=== PATIENT | male | born 1930 | race Caucasian/White ===

== ENCOUNTER 2017-02-05 09:50 | Inpatient (IN) | payer MEDICARE ==
[~2017-02-05] VITALS: Ht 172.7 cm; Wt 54.8 kg
[2017-02-05 10:06] VITALS: BP 163/85; PULSE 68; RESP 18; O2SAT 93
--- NOTE | 2017-02-05 10:20 | ED.REPORT ---
HPI-Hip/Pelvis Prob/Inj Date of Service February 05, 2017 ED Provider: Jhon Alonzo MD Patient is an 86 year old male who presents to the ED via EMS complaining of L hip pain s/p a glf this morning where he tripped and fell. Associated symptoms include trouble walking and painful ROM. He denies numbness, tingling, LOC, or any other symptoms. Nursing Notes Stated Complaint: LEFT HIP PAIN Chief Complaint: Extremity Trauma Nursing Notes Reviewed: Yes Allergies: Coded Allergies: atorvastatin (Verified Allergy, Severe, hepatitis, 02/05/17) iodine (Verified Allergy, Unknown, Hives, 02/05/17) Says he breaks out in hives the day after iodine. Given barium for CT scan 09/02/16. kld Scheduled Ezetimibe (Zetia) 10 Mg Tablet 10 MG PO Every other day Fluticasone/Salmeterol (Advair 250-50 Diskus) 60 Puff/Inh Disk 1 PUFF IH BID Scheduled PRN Albuterol HFA (Proair HFA) 8.5 Gm Hfa.aer.ad 2 PUFFS INHALATION Q4H PRN PRN For Shortness of Breath Diazepam (Valium) 5 Mg Tablet 2.5 MG PO TID PRN PRN For Anxiety Miscellaneous Medications Folic Acid (Folic Acid) 0.4 Mg Tablet 0.4 MG PO General Time Seen by Provider: 10:19 Chief Complaint Hip injury left Hx Obtained From: Patient, Spouse Arrived By: Ambulance Onset Occurred: 1 - 4 hours ago Immunizations: Tetanus not up to date Past Medical History Past Medical History Notes: PULST- DNR "unless I can be normal afterwards". Past Medical History Previous MS osteroporosis Reports: COPD, Coronary artery disease Past Surgical History fused vertebrae hernia repair Eye surgery Social History Other Social History: Good social support, Review of Systems Review of Systems Note: -tingling Musculoskeletal: Reports: Joint pain (L hip ) Neurologic: Reports: Problem walking, Denies: Change LOC, Numbness Complete sys rev & neg: except as marked. Physical Exam Initial Vital Signs Vital Signs (First) Date Time Temp Pulse Resp B/P Pulse Ox O2 Delivery O2 Flow Rate FiO2 02/05/17 10:06 36.5 68 18 163/85 93 Room Air 02/05/17 13:10 2 Initial VS: Reviewed General/Constitutional: Well-developed, Well-nourished Head / Eyes: Atraumatic, Normocephalic Neck: Full range of motion Abdomen / GI: Soft, Non-tender Neurologic: Alert, Oriented, Nonfocal Psychiatric: Mood/affect normal, Behavior normal, Normal thought content Lower Extremity / Pelvis / MS: No deformity LLE painful to ROM Respiratory / Chest: Breath sounds NL, Breath sounds = bilat, No respiratory distress Cardiovascular: Heart rate NL, Regular rhythm, Heart sounds NL, No gallop, No murmurs, No rubs Back: Atraumatic, Inspection NL, Non-tender Skin: Color NL, Warm, Dry Skin tear at L elbow Interpretation & Diagnostics Lab Results Interpretation Result Diagram: 02/05/17 1100 02/05/17 1100 Test 02/05/17 11:00 White Blood Count 9.5th/mm3 (3.8-10.1) Red Blood Count 4.52mil/mm3 (4.40-5.80) Hemoglobin 14.4g/dL (13.8-17.2) Hematocrit 42.5% (41.0-50.0) Mean Corpuscular Volume 94.0fL (81-100) Mean Corpuscular Hemoglobin 31.9pg (27.0-35.0) Mean Corpuscular Hemoglobin Concent 33.9% (32.0-37.0) Red Cell Distribution Width 14.4% (12.3-15.4) Platelet Count 171bil/L (150-400) Neutrophils (%) (Auto) 77.4% (40-74) Lymphocytes (%) (Auto) 14.8% (14-46) Monocytes (%) (Auto) 6.8% (4-12) Eosinophils (%) (Auto) 0.4% (0-5) Basophils (%) (Auto) 0.5% (0-3) Sodium Level 132mEq/L (134-144) Potassium Level 4.3mEq/L (3.5-5.2) Chloride Level 96mEq/L (97-108) Carbon Dioxide Level 20mmol/L (18-29) Blood Urea Nitrogen 16mg/dL (8-27) Creatinine 0.95mg/dL (0.76-1.27) Estimat Glomerular Filtration Rate 80mL/min (>59) Glucose Level 119mg/dL (60-99) Calcium Level 9.2mg/dL (8.5-10.1) Magnesium Level 1.9mg/dL (1.6-2.6) Total Bilirubin 0.8mg/dL (0.0-1.2) Aspartate Amino Transf (AST/SGOT) 25U/L (0-50) Alanine Aminotransferase (ALT/SGPT) 18U/L (0-44) Alkaline Phosphatase 94U/L (25-160) Total Protein 7.1g/dL (6.4-8.4) Albumin 3.9g/dL (3.4-5.0) ECG Interpretation ECG Interpretation: Sinus tachycardia rate [address] segment changes Ventricular premature complex Time: 12:15 Interpreted by: ED physician X-Ray Chest Interpretation Chest Xray Interpretation: IMPRESSION: Unchanged chronic interstitial changes. Dictated by: Calli Oconnor M.D. on 02/05/2017 at 12:51 Approved by: Calli Oconnor M.D. on 02/05/2017 at 12:51 View: Portable, 1 view Interpretation / Wet Read by: Interpret - Radiologist X-Ray Interpretation Xray Interpretation: IMPRESSION: Nondisplaced superior proximal femur fracture at the base of the lesser trochanter. Dictated by: Calli Oconnor M.D. on 02/05/2017 at 11:42 Approved by: Calli Oconnor M.D. on 02/05/2017 at 11:44 X-Ray Ordered: Pelvis, Hip left Interpretation / Wet Read by: Interpret - Radiologist Xray Interpretation: IMPRESSION: Degenerative changes. No visualized acute fracture or dislocation. However, if clinical concern and/or pain persist, short interval imaging followup in 7-10 days is recommended, as occult injury cannot be definitively excluded. Dictated by: Calli Oconnor M.D. on 02/05/2017 at 12:51 Approved by: Calli Oconnor M.D. on 02/05/2017 at 12:52 X-Ray Ordered: Knee left Interpretation / Wet Read by: Interpret - Radiologist Xray Interpretation: IMPRESSION: Nondisplaced proximal femoral shaft fracture as above. Dictated by: Calli Oconnor M.D. on 02/05/2017 at 12:52 Approved by: Calli Oconnor M.D. on 02/05/2017 at 12:53 X-Ray Ordered: Femur left Interpretation / Wet Read by: Interpret - Radiologist Re-Eval/Medical Decision Med Decision/Clinical Course 86 year-old with proximal femur fx. Will admit to hospitalist with ortho, preop studies elizabeth. Re-Evaluation/Progress : Time of Eval: 11:44 Re-Evaluation/Progress Note: Rechecked pt. Discussed imaging results and plan for admission. Patient understands and agrees with plan. All questions addressed at this time. Consultation #1: Referral / Consult Name: David Rodriguez MD Consulted With: Orthopedic Call Returned at: 11:41 Structural Layout Worker: Agrees with eval, Agrees with plan Note: Discussed pt case and imaging. Admit patient to hospitalist and surgery tomorrow. Consultation #2: Referral / Consult Name: Fredis Muir MD Consulted With: Hospitalist Call Returned at: 13:14 Structural Layout Worker: Will see patient, Agrees with eval, Agrees with plan, Accepts admit Note: Discussed pt case. Accepts admit Counseled Regarding: Diagnosis, Need for follow-up, Need for admission Discharge & Departure Impression: Primary Impression: Fracture, proximal femur Encounter type: initial encounter Fracture type: closed Laterality: left Qualified Code: S72.002A - Fracture of unspecified part of neck of left femur, initial encounter for closed fracture Disposition: ADMITTED TO HOSPITAL Discharge Condition All VS Reviewed: Yes Condition: Stable Referrals: Adrien Dowd DO (PCP) Scribe Attestation Portions of this note were transcribed by Merrick Caicedo. I, Dr. Alonzo personally performed the history, physical exam and medical decision-making; I reviewed and confirmed the accuracy of the information in the transcribed note. Signed by: Merrick Caicedo 02/05/2017, 1315 copies to: Adrien Dowd Donald L MD February 05, 2017 10:20 MERRICK CAICEDO February 05, 2017 10:26
[2017-02-05] MEDS: Ondansetron 2 mg/mL 2 mL Inj IV PRN (10:43)
[2017-02-05] MEDS: HYDROmorphone 1 mg/mL Inj IVPUSH PRN ×2 (10:43→11:33)
--- NOTE | 2017-02-05 11:46 | DRSVH ---
PROCEDURE: X-RAY PELVIS W/LAT HIP (LT) ([id number]) INDICATIONS: l hip pain post fall TECHNIQUE: AP pelvis with lateral view(s) of the left hip(s). COMPARISON: None. FINDINGS: Bones: There is a nondisplaced fracture of the proximal femur. It crosses the margin of the inferio r aspect of the lesser trochanter. Soft tissues: The visualized bowel gas pattern is normal. No suspicious soft tissue calcifications. IMPRESSION: Nondisplaced superior proximal femur fracture at the base of the lesser trochanter. Dictated by: Calli Oconnor M.D. on 02/05/2017 at 11:42 Approved by: Calli Oconnor M.D. on 02/05/2017 at 11:44
[2017-02-05] MEDS ORDERED: HYDROmorphone 1 mg/mL Inj IVPUSH ONE (11:55)
[2017-02-05] MEDS ORDERED: DIAZ5TAB PO (12:07)
[2017-02-05] MEDS ORDERED: CALC-243 PO (12:07)
[2017-02-05] MEDS ORDERED: EZET10TA PO (12:07)
[2017-02-05] MEDS ORDERED: ADV250INH IH (12:07)
[2017-02-05] MEDS ORDERED: MV-M1TAB38 PO (12:07)
[2017-02-05] MEDS ORDERED: ALBU8.5H2 INHALATION (12:07)
[2017-02-05 12:16] LABS: BASOPHILS % (AUTO) 0.5 % (0-3); EOSINOPHILS % (AUTO) 0.4 % (0-5); MONOCYTES % (AUTO) 6.8 % (4-12); Mean Corpuscular Hemoglobin 31.9 pg (27.0-35.0); NEUTROPHILS % (AUTO) 77.4 % (40-74); Platelet Count 171 bil/L (150-400)
[2017-02-05 12:39] LABS: Magnesium 1.9 mg/dL (1.6-2.6)
--- NOTE | 2017-02-05 12:53 | DRSVH ---
PROCEDURE: X-RAY CHEST ONE VIEW, PORTABLE ([id number]) INDICATIONS: preop TECHNIQUE: One view of the chest was acquired. COMPARISON: None. FINDINGS: Surgical changes and devices: Thoracic vertebral/kyphoplasty changes are present. Lungs and pleura: Chronic interstitial changes most prominent in the apices are unchanged. Mediastinum: Mediastinal contours appear normal. Heart size is normal. Bones and chest wall: No suspicious bony lesions. Overlying soft tissues appear unremarkable. IMPRESSION: Unchanged chronic interstitial changes. Dictated by: Calli Oconnor M.D. on 02/05/2017 at 12:51 Approved by: Calli Oconnor M.D. on 02/05/2017 at 12:51
--- NOTE | 2017-02-05 12:54 | DRSVH ---
PROCEDURE: X-RAY LEFT KNEE, ONE OR TWO VIEWS ([id number]) INDICATIONS: preop TECHNIQUE: 2 views of the knee were acquired. COMPARISON: None. FINDINGS: Bones: No fractures or dislocations. No suspicious bony lesions. Prominent medial and patellofemor al osteoarthritic degenerative narrowing. Soft tissues: No joint effusion. No suspicious soft tissue calcifications. IMPRESSION: Degenerative changes. No visualized acute fracture or dislocation. However, if clinical c oncern and/or pain persist, short interval imaging followup in 7-10 days is recommended, as occult in jury cannot be definitively excluded. Dictated by: Calli Oconnor M.D. on 02/05/2017 at 12:51 Approved by: Calli Oconnor M.D. on 02/05/2017 at 12:52
--- NOTE | 2017-02-05 12:55 | DRSVH ---
PROCEDURE: X-RAY LEFT FEMUR, TWO VIEWS ([id number]) INDICATIONS: preop TECHNIQUE: Pre-views of the femur were acquired. COMPARISON: None. FINDINGS: Bones: As previously identified, there is a nondisplaced proximal femoral shaft fracture, affecting t he inferior most aspect of the lesser trochanter. Degenerative changes are present at the knee most n otable in the medial and patellofemoral compartments. Soft tissues: No suspicious soft tissue calcifications or masses. IMPRESSION: Nondisplaced proximal femoral shaft fracture as above. Dictated by: Calli Oconnor M.D. on 02/05/2017 at 12:52 Approved by: Calli Oconnor M.D. on 02/05/2017 at 12:53
[2017-02-05 13:10] VITALS: BP 137/73; RESP 24; O2SAT 91
[2017-02-05] MEDS ORDERED: Polyethylene Glycol (PEG) 17 Gm Powder PO PRN (13:15)
--- NOTE | 2017-02-05 14:01 | PCM.HPMED ---
Subjective Date of Service February 05, 2017 Primary Provider: Admitting Physician: Fredis Muir MD Primary Care Physician: Adrien Dowd DO Attending Physician: Fredis Muir MD Chief Complaint: s/p fall History of Present Illness: 86 year old male with remote history [place], fomer smoker, COPD, HLD, severe back osteoarthritis a/p multiple kyphoplasty presented with mechanical fall this morning. Patient and dated that, there were outside of the house, patient tripped over extension cord, landed on the ground on the left side on the wooden deck, hurt his lt hip, lt elbow and mildly hit head. Patient denied chest pain, difficulty breathing, palpitation, blurry vision, nausea prior to fall. Patient did lose consciousness as per , not confused. called her son to bring to hospital. Of note, pt usually ambulates without any assistance at home and outside. can walk many blocks without chest pain,SOB. Patient denied any fever, chills, recent sickness, nausea, vomiting, diarrhea, urinary complaints. recent travel. pt used to use home oxygen until 2yrs ago before he moved to [place], for past 2yrs, Spo2 remained 90-95% on RA, didn't require O2, denied hospitalization with COPD. ED VS [id number], 68, 18, 93% on RA, afebrile. femur/knee/hip xray showed Nondisplaced proximal femoral shaft fracture. CXR/labs unremarkable. EKG-sinus [id number] Review of Systems: Pertinent positives as noted in history of present illness. All other systems were reviewed and are negative Allergies Coded Allergies: iodine (Verified Allergy, Unknown, Hives, 02/05/17) Says he breaks out in hives the day after iodine. Given barium for CT scan 09/02/16. kld Home Medications Advair bid albuterol prn, uses 1-2 per week valium prn for anxiety Zetia 1tab q2d PMH remote history [place] at 66yo, "at the bottom of the heart, didn't require intervention" COPD, as described above HLD, on Zetia, cannot tolerate statin, developed hepatitis, tried after [place] severe back osteoarthritis, fracture a/p multiple kyphoplasty mild MR, found 2000, TTE 2yrs ago stable Surgical History Bilateral hernia repair External hemorrhoids Kyphoplasty 6 times Family History father of old age mother of gangrenous pancreas Social History Hx Alcohol Use: Yes (very seldom) Hx Substance Use: No Hx Tobacco Use: Yes (40yrs of 2-3ppd until 1988) Additional Information lives with Exam Vital Signs Vital Sign - Last Date Time Temp Pulse Resp B/P Pulse Ox O2 Delivery O2 Flow Rate FiO2 02/05/17 10:06 36.5 68 18 163/85 93 Room Air Exam NAD, comfortably laying down on the bed no JVD, MMM, no LAD RRR, nl s1, s2 no mrg CTAB, no w,c S,ND,NT,normoactive BS+ warm, no edema, pulses 2/2 Lab and Diagnostics Result Diagram: 02/05/17 1100 02/05/17 1100 X-Rays, CTs and MRIs PROCEDURE: X-RAY CHEST ONE VIEW, PORTABLE ([id number]) INDICATIONS: preop TECHNIQUE: One view of the chest was acquired. COMPARISON: None. FINDINGS: Surgical changes and devices: Thoracic vertebral/kyphoplasty changes are present. Lungs and pleura: Chronic interstitial changes most prominent in the apices are unchanged. Mediastinum: Mediastinal contours appear normal. Heart size is normal. Bones and chest wall: No suspicious bony lesions. Overlying soft tissues appear unremarkable. IMPRESSION: Unchanged chronic interstitial changes. Dictated by: Calli Oconnor M.D. on 02/05/2017 at 12:51 Approved by: Calli Oconnor M.D. on 02/05/2017 at 12:51 PROCEDURE: X-RAY LEFT FEMUR, TWO VIEWS ([id number]) INDICATIONS: preop TECHNIQUE: Pre-views of the femur were acquired. COMPARISON: None. FINDINGS: Bones: As previously identified, there is a nondisplaced proximal femoral shaft fracture, affecting the inferior most aspect of the lesser trochanter. Degenerative changes are present at the knee most notable in the medial and patellofemoral compartments. Soft tissues: No suspicious soft tissue calcifications or masses. IMPRESSION: Nondisplaced proximal femoral shaft fracture as above. Dictated by: Calli Oconnor M.D. on 02/05/2017 at 12:52 Approved by: Calli Oconnor M.D. on 02/05/2017 at 12:53 12-lead ECG sinus tach 106 Assessment & Plan 86 year old male with remote history [place], fomer smoker, COPD, HLD, severe back osteoarthritis a/p multiple kyphoplasty presented with mechanical fall this morning, found to have Acute, active s/p ground level mechanical fall, resultant left proximal femur shaft fx. no s/ s of prodrome prior to fall. -pre-op assessment: COPD seems stable with current tx, CXR was also unremarkable. RCRI1: 0.9% javid-op risks of major cardiac event. no active cardiac condition that required preop eval and tx. -appreciate , plan for surgery tomorrow -control pain with morphine, per , pt was confused with other opoiod in the past except morphine -post op dvt ppx, pain management per orthopedic service mild tachycardia, hypertension, POA, likely due to stress response, monitor w/o meds for now Chronic, stable remote history [place] at 66yo, "at the bottom of the heart, didn't require intervention", stable, monitor for now, COPD, continue qvar bid, albuterol prn, will target [id number]%, o2 supplement as needed HLD, on Zetia, cannot tolerate statin, developed hepatitis, tried after [place] in the past, continue Zetia after surgery severe back osteoarthritis, fracture a/p multiple kyphoplasty, stable, mild MR, found 2000, TTE 2yrs ago stable, not active, pt seemed euvolemic. anxiety d/o, ativan prn dispo:Patient will be admitted with inpatient status with expectation of inpatient therapy for more than 2 midnights diet:heart healthy now, NPO after MN dvt ppx:SCD Full code Time spent 65 minutes Fredis Muir MD February 05, 2017 13:17
[2017-02-05 14:04] VITALS: BP 145/95; PULSE 105; RESP 18; O2SAT 90
[2017-02-05] MEDS ORDERED: Albuterol 2.5 mg/3 mL Inhalation Solution NEB PRN (14:05)
[2017-02-05] MEDS ORDERED: FOLI0.4T2 PO (14:23)
[2017-02-05 14:40] VITALS: PULSE 109
[2017-02-05] MEDS: HYDROcodone-APAP 5-325 mg Tablet PO PRN ×2 (15:23→19:44)
[2017-02-05 17:22] VITALS: BP 157/79; PULSE 105; RESP 20; O2SAT 92
[2017-02-05] MEDS: Sodium Chloride LOK Flush 10 mL Syringe IVFLUSH SCH ×2 (18:06→19:50)
[2017-02-05 18:09] LABS: APPEARANCE,URINE CLEAR (CLEAR,HAZY); COLOR,URINE DARK YELLOW (YELLOW); OCCULT BLOOD,URINE NEGATIVE (NEGATIVE); UROBILINOGEN,URINE NORMAL (NORMAL)
[2017-02-05] MEDS: Calcium Carbonate (Oyster Shell) 500 mg Tablet PO SCH ×2 (18:36→18:40)
[2017-02-05] MEDS: Fluticasone-Salmererol 250-50 Inhaler INHALATION SCH (19:48)
--- NOTE | 2017-02-05 21:01 | PCM.CONORT ---
Subjective Date of Surgery: February 06, 2017 Surgeon Admitting Provider: Attending Provider: Primary Care Physician:Adrien Dowd DO Other Provider: Reason for Consultation: left hip pain Allergy Allergies: Coded Allergies: atorvastatin (Verified Allergy, Severe, hepatitis, 02/05/17) iodine (Verified Allergy, Unknown, Hives, 02/05/17) Says he breaks out in hives the day after iodine. Given barium for CT scan 09/02/16. kld Medications Albuterol HFA (Proair HFA) 8.5 Gm Hfa.aer.ad 2 PUFFS INHALATION Q4H PRN PRN For Shortness of Breath (Reported) Last Taken: Unknown Dose on 02/03/17 1200 Diazepam (Valium) 5 Mg Tablet 2.5 MG PO TID PRN PRN For Anxiety (Reported) Last Taken: Unknown Dose on 02/02/17 0800 Ezetimibe (Zetia) 10 Mg Tablet 10 MG PO Every other day (Reported) Last Taken: Unknown Dose on 02/03/17 0800 Fluticasone/Salmeterol (Advair 250- 50 Diskus) 60 Puff/Inh Disk 1 PUFF IH BID (Reported) Last Taken: Unknown Dose on 02/05/17 0800 Folic Acid (Folic Acid) 0.4 Mg Tablet 0.4 MG PO (Reported) Last Taken: Unknown Dose on 02/04/17 0800 Discontinued Medications Calcium Carbonate/Vitamin D3 (Calcium 600 + Vit D Tablet) 1 Each Tablet 2 EACH PO DAILY (Reported) Last Taken: Unknown Dose on 06/08/16 Mv-Mn/FA/Vit K/Lycop/Lut/Zeaxa ( Ocuvite Eye + Multi Tablet) 200 Mcg-15 Mcg-150 Mcg-5 Mg-1 Mg Tablet 1 EACH PO DAILY (Reported) Last Taken: Unknown Dose on Unknown Date & Time History History of ENT Problems?: No HEENT History: Denies:: Abnormal Airway Cataracts Difficult Intubation Dysphagia Glaucoma Hearing Problem Sinus Problem TMJ Denture Type: None Teeth Condition: Within Normal Limits Hx of Heart Problems?: No Cardiovascular History: Denies:: AICD Abdominal Aortic Aneurism Atrial Fibrillation Cardiac Surgery Chest Pain Congestive Heart Failure Coronary Artery Disease Edema Heart Murmur Hypertension Irregular Heartbeat Pacemaker Peripheral Vascular Rheumatic Fever Thrombophlebitis Valvular Heart Disease Hx of Respiratory Problem?: Yes Respiratory History: Denies:: Asthma COPD Chest Surgery Cough Dyspnea Emphysema Hemoptysis Oxygen Administration Pneumonia Pulmonary Embolism Tuberculosis Use of C-PAP Machine Use of Inhalers / NEBS Hx Neurologic Problems?: No Neurological History: Denies:: Alzheimer's Disease CVA Dementia Dizziness Headaches Multiple Sclerosis Parkinson's Disease Peripheral Neuropathy Seizures TIA Hx of GI Problems?: No Gastrointestinal History: Denies:: Cirrhosis Diverticulitis Gall Bladder Disease Gastroesphageal Reflux Gastrointestinal Bleeding Heartburn Hepatitis Hiatal Hernia Liver Disease Rectal Bleeding Hx of Problems?: No Genitourinary History: Denies:: HX of Hemodialysis Kidney Stones Urinary Tract Infection Male Hx: Denies:: Prostate Problems Scrotal Mass Testicular Surgery Skin History: Denies:: History Skin Disorders? Pressure Ulcers Hx Musculoskeletal Problems?: No Other History/Comment Thomas Mendez is an 86 year old male with hx of [place], former smoker, COPD, HLD , HLD, previous vertebral insufficiency fractures s/p multiple kyphoplasties, osteoporosis who presents to the ER and orthopaedic consulted for left hip pain. Mr. Mendez reports tripping over an extension cord and landed on his left side with left hip pain. Pt reports pain with attempted ambulation. He denies any previous hip pain. Pt reports no LOC and is being admitted to medicine for medical optimization and care. He denies any fever, chills, chest pain, SOB. He denies any numbness, tingling, to his distal extremity. He denies any other issues or complaints today. He reports no use of ambulatory aids prior to fall. He is presenting with his today who witnessed the fall. Hx Surgeries?: No Other History/Comment per history Hx Diabetes: No Hx Alcohol Use: Yes (very seldom)Hx Substance Use: NoHave You Smoked inLast 12 mo: No Objective Exam Vital Signs & I/O Vital Sign- Last 8 Hours Date Time Temp Pulse Resp B/P Pulse Ox O2 Delivery O2 Flow Rate FiO2 02/05/17 10:06 36.5 68 18 163/85 93 Room Air Lab & Micro Results Laboratory Tests Test 02/05/17 11:00 Review of Systems: Constitutional: Negative, except as otherwise mentioned in the history above. Ophthalmologic: Negative, except as otherwise mentioned in the history above. Cardiovascular: Negative, except as otherwise mentioned in the history above. Respiratory: Negative, except as otherwise mentioned in the history above. Gastrointestinal: Negative, except as otherwise mentioned in the history above. Genitourinary: Negative, except as otherwise mentioned in the history above. Musculoskeletal: Negative, except as otherwise mentioned in the history above. Neurological: Negative, except as otherwise mentioned in the history above. Psychiatric: Negative, except as otherwise mentioned in the history above. Hematologic/Lymphatic: Negative, except as otherwise mentioned in the history above. Allergic/Immunologic: Negative, except as otherwise mentioned in the history above. H&P Surgical Exam Exam Musculoskeletal: CONST: WD,WN, NAD, A+OX3 OCULAR: EOMI, no conjunctivitis/icterus ENT: no deformities, scars or lesions CARDIAC: Pulse is regular. No cyanosis,clubbing,edema RESP: regular,unlabored MSK: normal light touch SPN/DPN/TN distributions. 5/5 DF/PF/Inv/Ev, 2+ DP Left HIP - scars.- swelling, - erythema - atrophy or asymmetry. TTP proximal femur, GT- mild, alignment- spine neutral, shoulder-crest equal, - pelvic tilt, ASIS-medial mal- symmetric ROM logroll-painful Strength deferred ROM exam 2/2 pain - calf tenderness thigh circ-equal, Signs deferred Additional Information 2 view xray of the left hip demonstrates nondisplaced subtrochanteric femur fracture H&P Preop Plan Impression left hip subtrochanteric femur fracture Problems: Risks & Benefits * We have reviewed the risks and benefits as well as the alternatives to surgery. All questions were answered to the patient's satisfaction and a counseling note to that effect. The patient has provided informed consent. * I have counseled the patient regarding the deleterious effects that smoking during the perioperative period can have upon wound healing, infection rates, and the overall rate of complications. Plan NWB LLE recommend dedicated femur and knee xrays NPO after midnight or OR in AM- CRIMN DVT prophylaxis with SCD/TEDs chemical DVT prophylaxis after surgery appreciate medical optimization for surgery in AM continue medical management per primary pain control please call with questions David Rodriguez MD February 05, 2017 12:16
[2017-02-05 21:28] VITALS: BP 135/77; PULSE 95; RESP 20; O2SAT 93
[2017-02-06] VITALS (13 sets, daily range): BP systolic 102–134; BP diastolic 63–80; PULSE 83–110; RESP 16–21; O2SAT 89–98
[2017-02-06] MEDS: HYDROcodone-APAP 5-325 mg Tablet PO PRN ×2 (02:22→18:52)
[2017-02-06] MEDS ORDERED: HYDROmorphone 1 mg/mL Inj IVPUSH PRN (05:15)
[2017-02-06 05:44] LABS: BASOPHILS % (AUTO) 0.3 % (0-3); EOSINOPHILS % (AUTO) 0.4 % (0-5); MONOCYTES % (AUTO) 13.2 % (4-12); Mean Corpuscular Hemoglobin 32.1 pg (27.0-35.0); Mean Corpuscular Volume 93.9 fL (81-100); NEUTROPHILS % (AUTO) 74.5 % (40-74); Platelet Count 145 bil/L (150-400)
[2017-02-06] MEDS ORDERED: Propofol 10,000 mCg/mL 20 mL Inj ONE (07:17)
[2017-02-06] MEDS: Ondansetron 2 mg/mL 2 mL Inj IV PRN (07:47)
[2017-02-06] MEDS ORDERED: fentaNYL-PF 50 mCg/mL 2 mL Inj IVPUSH PRN (08:00)
[2017-02-06] MEDS ORDERED: CALCIUM CARBONATE PO SCH (08:30)
[2017-02-06] MEDS ORDERED: VITAMIN D3 PO SCH (08:30)
[2017-02-06] MEDS ORDERED: [UNRECOGNIZED DRUG - OTHER] PO SCH (08:30)
[2017-02-06] MEDS: Vitamins C,E, Omega-3, Mineral Tablet PO SCH (09:02)
[2017-02-06] MEDS: Fluticasone-Salmererol 250-50 Inhaler INHALATION SCH ×2 (09:03→21:02)
[2017-02-06] MEDS: Sodium Chloride LOK Flush 10 mL Syringe IVFLUSH SCH ×2 (09:03→17:22)
--- NOTE | 2017-02-06 09:32 | PCM.PNMED ---
Subjective Date of Service February 06, 2017 Subjective pt still in pain, agitated intermittently, looked distressed due to pain denied SOB, chest pain, had nausea with morphine, but did well with oxycodone plan for surgery today per Exam Vital Signs Vital Sign - Last Date Time Temp Pulse Resp B/P Pulse Ox O2 Delivery O2 Flow Rate FiO2 02/06/17 09:13 36.8 84 18 130/80 92 Nasal Cannula 2.00 Intake and Output 02/05/17 02/05/17 02/06/17 Cumulative From/Thru 15:00 23:00 07:00 02/05/17 10:06 - 02/06/17 06:06 Intake Total 400 ml 250 ml 650 ml Output Total 300 ml 490 ml 790 ml Balance 100 ml -240 ml -140 ml Intake Oral 400 ml 250 ml 650 ml Output Urine Total 300 ml 490 ml 790 ml # Bowel Movements 0 0 Exam NAD, comfortably laying down on the bed no JVD, MMM, no LAD RRR, nl s1, s2 no mrg CTAB, no w,c S,ND,NT,normoactive BS+ warm, no edema, pulses 2/2 left hip tenderness IVs and Medications Medications Reviewed: Medications were reviewed in detail Lab and Diagnostics Result Diagram: 02/06/17 0525 02/05/17 1100 X-Rays, CTs and MRIs PROCEDURE: X-RAY CHEST ONE VIEW, PORTABLE ([id number]) INDICATIONS: preop TECHNIQUE: One view of the chest was acquired. COMPARISON: None. FINDINGS: Surgical changes and devices: Thoracic vertebral/kyphoplasty changes are present. Lungs and pleura: Chronic interstitial changes most prominent in the apices are unchanged. Mediastinum: Mediastinal contours appear normal. Heart size is normal. Bones and chest wall: No suspicious bony lesions. Overlying soft tissues appear unremarkable. IMPRESSION: Unchanged chronic interstitial changes. Dictated by: Calli Oconnor M.D. on 02/05/2017 at 12:51 Approved by: Calli Oconnor M.D. on 02/05/2017 at 12:51 PROCEDURE: X-RAY LEFT FEMUR, TWO VIEWS ([id number]) INDICATIONS: preop TECHNIQUE: Pre-views of the femur were acquired. COMPARISON: None. FINDINGS: Bones: As previously identified, there is a nondisplaced proximal femoral shaft fracture, affecting the inferior most aspect of the lesser trochanter. Degenerative changes are present at the knee most notable in the medial and patellofemoral compartments. Soft tissues: No suspicious soft tissue calcifications or masses. IMPRESSION: Nondisplaced proximal femoral shaft fracture as above. Dictated by: Calli Oconnor M.D. on 02/05/2017 at 12:52 Approved by: Calli Oconnor M.D. on 02/05/2017 at 12:53 12-lead ECG sinus tach 106 Assessment & Plan 86 year old male with remote history LA, fomer smoker, COPD, HLD, severe back osteoarthritis a/p multiple kyphoplasty presented with mechanical fall this morning, found to have Acute, active s/p ground level mechanical fall, resultant left proximal femur shaft fx. no s/ s of prodrome prior to fall. -pre-op assessment: COPD seems stable with current tx, CXR was also unremarkable. RCRI1: 0.9% javid-op risks of major cardiac event. no active cardiac condition that required preop eval and tx. -appreciate , plan for surgery today -control pain with morphine or oxycodone, will try fentanyl prn -post op dvt ppx, pain management per orthopedic service Chronic, stable, resolved mild tachycardia, hypertension, POA, likely due to stress response, resolved remote history LA at 66yo, "at the bottom of the heart, didn't require intervention", stable, monitor for now, COPD, continue qvar bid, albuterol prn, will target [id number]%, o2 supplement as needed HLD, on Zetia, cannot tolerate statin, developed hepatitis, tried after LA in the past, continue Zetia after surgery severe back osteoarthritis, fracture a/p multiple kyphoplasty, stable, mild MR, found 2000, TTE 2yrs ago stable, not active, pt seemed euvolemic. anxiety d/o, ativan prn dispo:likely 3days post op diet:NPO resume diet dvt ppx:SCD Full code Time spent 35min Fredis Muir MD February 06, 2017 09:32
[2017-02-06] MEDS ORDERED: Sodium Biphos-Phos 133 mL Enema RECTAL PRN (12:25)
[2017-02-06] MEDS ORDERED: Magnesium Hydroxide 10 mL Oral Concentration PO PRN (12:25)
[2017-02-06] MEDS ORDERED: HYDROcodone-APAP 5-325 mg Tablet PO PRN (12:25)
[2017-02-06] MEDS ORDERED: hydrOXYzine Pamoate 25 mg Capsule PO PRN (12:25)
[2017-02-06] MEDS ORDERED: Ketorolac 15 mg/mL Inj IVPUSH PRN (12:25)
[2017-02-06] MEDS ORDERED: Ondansetron 2 mg/mL 2 mL Inj IVPUSH PRN (12:25)
[2017-02-06] MEDS ORDERED: diphenhydrAMINE 25 mg Capsule PO PRN (12:25)
[2017-02-06] MEDS ORDERED: Polyethylene Glycol (PEG) 17 Gm Powder PO PRN (12:25)
[2017-02-06] MEDS ORDERED: HYDROcodone-APAP 7.5-325 mg Tablet PO PRN (12:25)
--- NOTE | 2017-02-06 14:14 | PCM.ORTHOP ---
Orthopedic Operative Report Date of Service: February 06, 2017 Pre Operative Diagnosis Left hip subtrochanteric femur fracture Post Operative Diagnosis Same Procedure Left hip closed reduction intramedullary nail fixation Surgeon Surgeon: David Rodriguez Assistants: Mich Hernandez Indication for Procedure Left hip/subtrochanteric femur fracture Findings Per dictation Details of Procedure Implant: Synthes Nail 12mm X 130 deg, 400 mm, TFNA screw 100mm, 48mm screw distal interlock Indications: This is Thomas Mendez who is status-post a left hip subtrochanteric femur fracture with clinical osteoporosis. We discussed surgical and nonsurgical options and discussed need to protect entire femur in the setting of osteoporosis refractory to treatment with several medications. The risks versus benefits of open reduction and internal fixation were discussed with the patient in detail. The patient voiced understanding of the risks and agreed to proceed. The risks discussed were pain, bleeding, infection , damage to neurovascular structures, failure of procedure, need for further procedures, loss of limb function, loss of limb, heart attack, stroke, and . Verbal and written consent were obtained. Description of Operation: The patient was brought to the operating room. Patient name and surgical site were confirmed. Preoperative antibiotics were given. General anesthesia was administered. The patient was placed supine on the fracture table in the standard fashion. All bony prominences were well padded. Traction was applied to the operative leg and the fracture was closed reduced under C-arm guidance. The leg and hip were then prepped and draped in the usual sterile fashion. A small longitudinal incision was made proximal to the greater trochanter. Subcutaneous dissection was bluntly performed down to the tip of the greater trochanter. A 3.2 mm guide pin was then placed through the tip of the greater trochanter and into the femoral canal under fluoroscopic guidance. This was checked in both AP and lateral views. This pin was then over-reamed with a 17 mm reamer. The ball tipped guide wire was placed into the medullary canal and advanced into the center of the distal metaphysis. The guide wire was then over-reamed in 0.5 mm increments until bony chatter was achieved at the isthmus. A tire gauge was used to determine the length of the nail. The nail implant was loaded onto the insertion jig and then gently malleted into position over the guide wire. The fracture was well reduced as confirmed with C-arm in AP and lateral views. The guide was removed. The guide pin for the hip screw was inserted to a point within 25 mm tip-to-apex distance on AP and lateral views. The size was measured. A hip screw size was selected along with a compression screw. The lateral cortex was drilled for the compression screw. The guide pin was then overdrilled and a hip screw was inserted with clear compression at the fracture once the compression screw inserted and engaged. The traction was removed and orthogonal views with fluoroscopy determined reduction of our fracture with appropriate placement of hip screw centered with a tip-to-apex distance less than 25 mm. The distal interlocking screw was then inserted in the standard fashion using the perfect huslia technique under C-arm guidance. All wounds were thoroughly irrigated by bulb irrigation. Hemostasis was obtained with electrocautery. The fascia was closed with 0 Vicryl suture. The subcutaneous space was closed with interrupted 2-0 Vicryl suture. The skin was closed with interrupted raman. Hard copy radiographs confirmed adequate reduction and placement of hardware. The patient was extubated without difficulty and transferred to the PACU in stable condition. I was present and scrubbed for the entire procedure. Description of Findings: left hip subtrochanteric femur fracture Specimens Obtained: none You may WBAT. Keep your wound clean, dry and intact. We will change your dressing in 2 days and continue daily dressing changes PT/OT will be ordered. Return to clinic in 2 weeks with me with 2 view x-rays and staple/suture removal with Steri-Strips application. You may get your wound wet at that time. Please keep the affected extremity elevated when possible. You may use ice and/or heat as needed for comfort. All questions and concerns were addressed. Please feel free to call with any further questions, comments, and/or concerns. You will start anticoagulation tomorrow AM and will take for 35 days to prevent blood clots. You will be discharged on Xarelto, [place], and colace. Grafts, Implants: Implants-See Implant Record Complications There were no periprocedural complications identified. Condition Stable Anesthetic Administered: GA Catheters: None Output, Estimated Blood Loss: 10 Blood Admin during surgery: No Surgical Cast or Splint: Other Surgical Specimen Removed: No Specimen sent to Pathology: No copies to: David Rodriguez MD, Christopher L MD February 06, 2017 14:14
[2017-02-06] MEDS ORDERED: CeFAZolin Inj 2 gm / 50mL D5W IV ONE (14:42)
[2017-02-06] MEDS ORDERED: Lactated Ringer's 1,000 ML IV ONE (14:42)
[2017-02-06] MEDS ORDERED: Ropivacaine-PF 0.5% 30 mL Inj INFILTRATE ONE (15:43)
[2017-02-06] MEDS: Sodium Chloride LOK Flush 10 mL Syringe IV SCH (16:30)
--- NOTE | 2017-02-06 17:04 | DRSVH ---
PROCEDURE: X-RAY PELVIS W/LAT HIP (LT) ([id number]) INDICATIONS: postop TECHNIQUE: AP pelvis with lateral view(s) of the left hip(s). COMPARISON: None. FINDINGS: Bones: Postsurgical changes compatible with ORIF of subtrochanteric left hip fracture noted. Dynami c compression screw, intramedullary jonathon and distal interlocking screw place for ORIF. There is anato vinny alignment. Procedure changes compatible with prior L4 and L5 percutaneous vertebroplasty is note d. Soft tissues: The visualized bowel gas pattern is normal. No suspicious soft tissue calcifications. IMPRESSION: Anatomic alignment following ORIF of left hip fracture. Dictated by: Nika Ríos MD, PhD on 02/06/2017 at 17:01 Approved by: Nika Ríos MD, PhD on 02/06/2017 at 17:02
[2017-02-06] MEDS: Calcium Carbonate (Oyster Shell) 500 mg Tablet PO SCH (17:30)
--- NOTE | 2017-02-06 17:35 | PCM.HPANE ---
Patient Data Date of Service: February 06, 2017 (Exam completed at 14:30) Surgeon Admitting Provider:Fredis Muir MD Attending Provider:Fredis Muir MD Primary Care Physician:Adrien Dowd DO Other Provider: Reason for Visit Left Femur Fracture LEFT FEMUR FRACTURE Ht/WT & BMI Height (Feet): 5 Height (Inches): 8.00 Weight (Kilograms): 54.800 Body Mass Index 18.31 Allergies Coded Allergies: atorvastatin (Verified Allergy, Severe, hepatitis, 02/05/17) iodine (Verified Allergy, Unknown, Hives, 02/05/17) Says he breaks out in hives the day after iodine. Given barium for CT scan 09/02/16. kld Past Anesthesia History Anesthesia History: Denies:: Abnormal Airway, Difficult Intubation Diabetes History Hx Diabetes?: No MRSA MRSA: No Medications Home Meds Incl Beta Jad: No Reported Medications Folic Acid 0.4 Mg Tablet0.4 Mg PO 02/05/17 Diazepam (Valium)5 Mg Tablet2.5 Mg PO TID PRN For Anxiety 30 Days Ref 0 02/05/17 Ezetimibe (Zetia)10 Mg Emocnp64 Mg PO Every other day 30 Days Ref 0 02/05/17 Albuterol HFA (Proair HFA)8.5 Gm Hfa.aer.ad2 Puffs INHALATION Q4H PRN For Shortness of Breath #1 INHALER 02/05/17 Fluticasone/Salmeterol (Advair 250-50 Diskus)60 Puff/Inh Disk1 Puff IH BID #1 DISK Ref 0 02/05/17 Discontinued Reported Medications Mv-Mn/FA/Vit K/Lycop/Lut/Zeaxa (Ocuvite Eye + Multi Tablet)200 Mcg-15 Mcg-150 Mcg-5 Mg-1 Mg Tablet1 Each PO DAILY 02/05/17 Calcium Carbonate/Vitamin D3 (Calcium 600 + Vit D Tablet)1 Each Tablet2 Each PO DAILY 02/05/17 History History of ENT Problems?: No HEENT History: Denies:: Abnormal Airway Cataracts Difficult Intubation Dysphagia Glaucoma Hearing Problem Sinus Problem TMJ Denture Type: Full- Upper Full- Lower Teeth Condition: Within Normal Limits Hx of Heart Problems?: No Cardiovascular History: Denies:: AICD Abdominal Aortic Aneurism Atrial Fibrillation Cardiac Surgery Chest Pain Congestive Heart Failure Coronary Artery Disease Edema Heart Murmur Hypertension Irregular Heartbeat Pacemaker Peripheral Vascular Rheumatic Fever Thrombophlebitis Valvular Heart Disease Hx of Respiratory Problem?: Yes Respiratory History: Denies:: Asthma COPD Chest Surgery Cough Dyspnea Emphysema Hemoptysis Oxygen Administration Pneumonia Pulmonary Embolism Tuberculosis Use of C-PAP Machine Use of Inhalers / NEBS Hx Neurologic Problems?: No Neurological History: Denies:: Alzheimer's Disease CVA Dementia Dizziness Headaches Multiple Sclerosis Parkinson's Disease Peripheral Neuropathy Seizures TIA Hx of GI Problems?: No Hx of Problems?: No Genitourinary History: Denies:: HX of Hemodialysis Kidney Stones Urinary Tract Infection Male Hx: Denies:: Prostate Problems Scrotal Mass Testicular Surgery Skin History: Denies:: History Skin Disorders? Pressure Ulcers Hx Musculoskeletal Problems?: No Musculoskeletal History: Denies:: Joint Replacement Musculoskeletal Trauma Hx of Psycho/Social Problems?: No Hx Surgeries?: No History Blood Transfusions: Positive for:: Accept Blood Products? Denies:: Blood Transfuse Reaction Blood Transfusions Hx Diabetes: No Hx Alcohol Use: Yes (very seldom)Alcoholic Drinks Per Day: occasionalHx Substance Use: NoHave You Smoked inLast 12 mo: No Stop/Bang Treated for Sleep Apnea?: No Do You Have a CPAP Machine?: No S-Snoring: Do You Snore Loudly: Yes T-Tired: feel tired, fatigued: No O-Obsered: Observed not breath: No P-Blood Pressure: treated: No B- Body Mass Index > 35 kg/m2: No A- Age over 50: Yes N- Neck Large Circumference: No G- Gender Male: Yes ELVIE Total Score: 2 ELVIE Risk Assessment: Low Risk, <3 Yes Risk Assessment Category Category 1A: Patient has history of documented sleep apnea, and HAS NOT received any narcotic, sedative or anesthesia administration during this stay. Category 1B: Patient has history of documented sleep apnea, and HAS received any narcotic , sedative or anesthesia administration during this stay Category 2: Patient has SUSPECTED Obstructive Sleep Apnea, and HAS received any narcotic , sedative or anesthesia administration during this stay. Category 3: Patient has SUSPECTED Obstructive Sleep Apnea and HAS NOT received narcotic, sedative or anesthesia administration during this stay. Category 4: Outpatient in Procedural Areas with known sleep apnea or who screen positive for High Risk via the STOP/BANG questionnaire. Exam Exam Vital Signs Vital Signs Date Time Temp Pulse Resp B/P Pulse Ox O2 Delivery O2 Flow Rate FiO2 02/06/17 17:00 97 21 126/74 96 Nasal Cannula 2 02/06/17 16:35 37.5 98 17 102/76 96 Nasal Cannula 2 02/06/17 16:30 100 17 105/63 96 Nasal Cannula 2 02/06/17 16:25 99 18 102/66 95 Nasal Cannula 2 02/06/17 16:22 37.5 98 19 102/76 94 Nasal Cannula 2 General Appearance: Alert, Oriented X3, Cooperative, No Acute Distress HEENT/AIRWAY: MP 3, Neck Movement Lungs: Clear to Auscultation, Normal Air Movement Heart: Exam Unremarkable, Regular Rate/Rhythm, No Murmurs/Rubs/Gallops Meds/Labs/Diagnostics Admission Meds Current Medications Salmeterol Xinafoate/ Fluticasone (Advair 250-50) 1 puff BID INHALATION Last administered on 02/06/17 09:03; Start 02/05/17 at 20:30 Beta Carotene (Ocuvite) 1 tablet DAILY PO Last administered on 02/06/17 09:02 ; Start 02/06/17 at 08:30 Multivitamins/ Minerals Therapeutic (Thera Vitamins w/Mineral) 1 tablet DAILY PO Last administered on 02/06/17 09:02; Start 02/06/17 at 08:30 Cefazolin Sodium/ Dextrose (Ancef Inj / D5W 50mL) 2 gm STK-MED ONCE IV Last administered on 02/06/17 15:21; Start 02/06/17 at 14:42; Stop 02/06/17 at 14:46 ; Status DC Ropivacaine 30 ml 30 ml STK-MED ONCE INFILTRATE Last administered on 02/06/17 15:43; Start 02/06/17 at 15:43; Stop 02/06/17 at 15:45; Status DC Lactated Ringer's (Lr) 1,000 ml @ ud STK-MED ONCE IV Last administered on 02/06 14:42; Start 02/06/17 at 14:42; Stop 02/06/17 at 15:46; Status DC Labs Test 02/05/17 11:00 02/05/17 17:33 02/06/17 05:25 Sodium Level 132mEq/L (134-144) Potassium Level 4.3mEq/L (3.5-5.2) Chloride Level 96mEq/L (97-108) Carbon Dioxide Level 20mmol/L (18-29) Blood Urea Nitrogen 16mg/dL (8-27) Creatinine 0.95mg/dL (0.76-1.27) Estimat Glomerular Filtration Rate 80mL/min (>59) Glucose Level 119mg/dL (60-99) Calcium Level 9.2mg/dL (8.5-10.1) Magnesium Level 1.9mg/dL (1.6-2.6) Total Bilirubin 0.8mg/dL (0.0-1.2) Aspartate Amino Transf (AST/SGOT) 25U/L (0-50) Alanine Aminotransferase (ALT/SGPT) 18U/L (0-44) Alkaline Phosphatase 94U/L (25-160) Total Protein 7.1g/dL (6.4-8.4) Albumin 3.9g/dL (3.4-5.0) Urine Color Dark yellow (YELLOW) Urine Appearance Clear (CLEAR,HAZY) Urine pH 6.0 (5.0-8.0) Urine Specific [place] 1.025 (1.003-1.035) Urine Protein 30mg/dL (NEG,TRACE) Urine Glucose (UA) Negativemg/dL (NEGATIVE) Urine Ketones 15mg/dL (NEGATIVE) Urine Occult Blood Negative (NEGATIVE) Urine Nitrite Negative (NEGATIVE) Urine Bilirubin Negative (NEGATIVE) Urine Urobilinogen Normalmg/dL (NORMAL) Urine Leukocyte Esterase Negative (NEGATIVE) Urine RBC 0-2/hpf (0-2) Urine WBC 0-5/hpf (0-5) Urine Epithelial Cells Occasional/hpf (NONE-MOD) Urine Crystals None seen (NONE SEEN) Urine Bacteria None/hpf (NONE-FEW) Urine Hyaline Casts None/lpf (NONE) Urine Granular Casts None seen (NONE SEEN) Urine Waxy Casts None seen (NONE SEEN) Urine Red Blood Cell Casts None seen (NONE SEEN) Urine White Blood Cell Casts None seen (NONE SEEN) Urine Mucus None seen (None Seen) Urine Trichomonas None seen (NONE SEEN) Urine Yeast None (NONE SEEN) Urinalysis Comment None Urine Culture Reflexed Not indicated White Blood Count 11.6th/mm3 (3.8-10.1) Red Blood Count 4.11mil/mm3 (4.40-5.80) Hemoglobin 13.2g/dL (13.8-17.2) Hematocrit 38.6% (41.0-50.0) Mean Corpuscular Volume 93.9fL (81-100) Mean Corpuscular Hemoglobin 32.1pg (27.0-35.0) Mean Corpuscular Hemoglobin Concent 34.2% (32.0-37.0) Red Cell Distribution Width 14.2% (12.3-15.4) Platelet Count 145bil/L (150-400) Neutrophils (%) (Auto) 74.5% (40-74) Lymphocytes (%) (Auto) 11.4% (14-46) Monocytes (%) (Auto) 13.2% (4-12) Eosinophils (%) (Auto) 0.4% (0-5) Basophils (%) (Auto) 0.3% (0-3) Plan Impression Patient chart reviewed, patient interviewed and anesthestic plan with risks, benefits, and alternatives discussed, and informed consent obtained. NPO per Anesth. Guidelines: Yes ASA Physical Status: ASA3 Severe Disease Anesthetic Plan: GA Bene/Risks/Altern/Consents: Yes HP Complete Prior to Induction: Yes Aristeo Arias MD February 06, 2017 17:35
--- NOTE | 2017-02-06 17:37 | PCM.ANEP1 ---
Post Anesthesia PACU Phase 1 Assessment Vital Signs Vital Signs Date Time Temp Pulse Resp B/P Pulse Ox O2 Delivery O2 Flow Rate FiO2 02/06/17 17:00 97 21 126/74 96 Nasal Cannula 2 02/06/17 16:35 37.5 98 17 102/76 96 Nasal Cannula 2 02/06/17 16:30 100 17 105/63 96 Nasal Cannula 2 02/06/17 16:25 99 18 102/66 95 Nasal Cannula 2 02/06/17 16:22 37.5 98 19 102/76 94 Nasal Cannula 2 Anesthetic Administered: GA Level of Alertness: Awake, talking GÓMEZ's with Equal Strength: No Pain: No (just received pain meds, feeling better) Pain Scale Score: 0 Nausea or Vomiting: No CV Function and Hydration: Yes Airway Device: Oxygen Delivery: Nasal Cannula Lungs: Clear to Auscultation, Normal Air Movement Dermatome Level: Full Sensation PACU Phase 2 Assessment Complications: No Follow up Care: N/A Patient Instructions Provided: Yes Aristeo Arias MD February 06, 2017 17:37
[2017-02-06] MEDS: Senna-Docusate 8.6-50 mg Tablet PO SCH (21:01)
[2017-02-07] VITALS (8 sets, daily range): BP systolic 104–127; BP diastolic 57–76; PULSE 89–98; RESP 16–20; O2SAT 86–98
[2017-02-07] MEDS: Sodium Chloride LOK Flush 10 mL Syringe IVFLUSH SCH ×3 (00:25→16:30)
[2017-02-07] MEDS: Sodium Chloride LOK Flush 10 mL Syringe IV SCH ×4 (00:26→20:05)
[2017-02-07] MEDS: HYDROcodone-APAP 5-325 mg Tablet PO PRN ×2 (01:59→11:16)
[2017-02-07 06:36] LABS: BASOPHILS % (AUTO) 0.3 % (0-3); EOSINOPHILS % (AUTO) 1.9 % (0-5); MONOCYTES % (AUTO) 10.7 % (4-12); Mean Corpuscular Hemoglobin 31.9 pg (27.0-35.0); NEUTROPHILS % (AUTO) 78.8 % (40-74); Platelet Count 107 bil/L (150-400)
[2017-02-07] MEDS ORDERED: Bupivacaine-MPF 0.5% W/EPI 30 mL Inj ONE (07:53)
[2017-02-07] MEDS ORDERED: fentaNYL-PF 50 mCg/mL 2 mL Inj ONE (07:53)
[2017-02-07] MEDS ORDERED: Phenylephrine/NS 100 mCg/mL 10 mL Syringe IVPUSH ONE (07:53)
[2017-02-07] MEDS: Calcium Carbonate (Oyster Shell) 500 mg Tablet PO SCH ×3 (08:00→17:30)
[2017-02-07] MEDS: Senna-Docusate 8.6-50 mg Tablet PO SCH ×2 (08:48→19:58)
[2017-02-07] MEDS: Vitamins C,E, Omega-3, Mineral Tablet PO SCH (08:49)
[2017-02-07] MEDS: Fluticasone-Salmererol 250-50 Inhaler INHALATION SCH ×2 (08:59→20:00)
--- NOTE | 2017-02-07 11:02 | PCM.PNORTH ---
Subjective Date of Service: February 07, 2017 Visit Information: Reason for Visit Left Femur Fracture Surgery/Surgery Date LEFT HIP ORIF 02/06/17 Post-Op Day # Date of Admission: February 05, 2017 at 13:11 Hospital Day # Subjective Found patient awake this morning and sitting up in bed. Well positioned. Patient's in attendance at bedside. Patient is mildly confused this morning. He can answer questions and follow commands but is somewhat confused about why he is in the hospital. His states this occurred last night sometime after midnight. I have explained to his that this is not unusual for seniors who have undergone a large injury and surgical anesthesia with pain medications afterwards. I have reassured her that this often results within a few days. Postop General: No Complaints, No Shortness of Breath, No Chest Pain Pain Management: PO Objective Exam Objective Alert and poorly oriented and pleasant. Interoperative dressing is clean dry and intact. Calf and thigh are soft and nontender. Toe wiggle and sensation are intact left lower extremity distally. Abreu is absent. SCDs are in place. Vital Signs and I/O Vital Sign - Last Date Time Temp Pulse Resp B/P Pulse Ox O2 Delivery O2 Flow Rate FiO2 02/07/17 09:10 95 02/07/17 09:00 20 86 Room Air 02/07/17 06:11 37.1 104/71 2.00 Intake and Output 02/06/17 02/06/17 02/07/17 Cumulative From/Thru 15:00 23:00 07:00 02/05/17 10:06 - 02/07/17 06:41 Intake Total 800 ml 240 ml 200 ml 1890 ml Output Total 10 ml 100 ml 90 ml 990 ml Balance 790 ml 140 ml 110 ml 900 ml Intake Oral 240 ml 200 ml 1090 ml IV Total 800 ml 0 ml 800 ml Output Urine Total 90 ml 880 ml Estimated Blood Loss 10 ml 100 ml 110 ml # Voids 3 3 # Bowel Movements 0 Lab & Micro Results Laboratory Tests Test 02/07/17 05:32 White Blood Count 13.4th/mm3 (3.8-10.1) Red Blood Count 3.82mil/mm3 (4.40-5.80) Hemoglobin 12.2g/dL (13.8-17.2) Hematocrit 36.3% (41.0-50.0) Mean Corpuscular Volume 95.0fL (81-100) Mean Corpuscular Hemoglobin 31.9pg (27.0-35.0) Mean Corpuscular Hemoglobin Concent 33.6% (32.0-37.0) Red Cell Distribution Width 14.6% (12.3-15.4) Platelet Count 107bil/L (150-400) Neutrophils (%) (Auto) 78.8% (40-74) Lymphocytes (%) (Auto) 8.1% (14-46) Monocytes (%) (Auto) 10.7% (4-12) Eosinophils (%) (Auto) 1.9% (0-5) Basophils (%) (Auto) 0.3% (0-3) Result Diagram: 02/07/17 0532 02/05/17 1100 Catheters: None Assessment & Plan Impression Patient is an 86-year-old male who was undergone a left long femoral IM nail on 02/06/2017. He is displaying some mild confusion postoperatively but is otherwise in good condition. Problems: Plan Postop day #1 from left long femoral IM nail placed on 02/06/[address] David castaneda. Weight-bear as tolerated on the left lower extremity using front-wheeled walker. Continue formal physical therapy for mobility, gait and safety. Continue pain medication as needed with removal of IV pain medication as soon as able. Continue his Xarelto 10 mg daily 35 days postop for DVT prophylaxis. Interoperative dressing is clean dry and intact. Dressing will be changed by orthopedics on postop day 2 with daily dressing changes thereafter. SCDs are in place bilaterally. Nursing please measure and fit bilateral thigh-high SHARITA hose as ordered today. Follow-up in 2 weeks that [facility] orthopedic clinic with Dr. David galicia with staple removal and application of Steri-Strips and 2 view left femur x -rays on arrival. Patient will be cleared showering and getting wound wet at that time. Follow up in 6 weeks at [facility] orthopedic clinic with Dr. David galicia with left two-view femur x-rays on arrival. Orthopedics thanks hospitalist service for their help in the medical management of this patient. [facility]ate [facility] to [facility] on postop day number 3, 2016 by hospitalist service. VTE Prophylaxis: SCDs (bilateral SCDs), SHARITA Hose (bilateral SHARITA hose thigh- high ordered today), Other (Xarelto 10 mg 35 days postop for DVT prophylaxis) Mich Hernandez PA-C February 07, 2017 11:02
--- NOTE | 2017-02-07 17:19 | PCM.PNMED ---
Subjective Date of Service February 07, 2017 Subjective Patient is confused and does not believe in any of the "BS" that is going on here. But he is quick to note that if I were to touch his left side/hip he would have a great deal of pain. Does not seem to be having any chest pain, dyspnea, nausea or vomiting. Exam Vital Signs Vital Sign - Last Date Time Temp Pulse Resp B/P Pulse Ox O2 Delivery O2 Flow Rate FiO2 02/07/17 16:20 36.9 97 20 127/57 90 Nasal Cannula 2.00 Intake and Output 02/06/17 02/06/17 02/07/17 Cumulative From/Thru 15:00 23:00 07:00 02/05/17 10:06 - 02/07/17 06:41 Intake Total 800 ml 240 ml 200 ml 1890 ml Output Total 10 ml 100 ml 90 ml 990 ml Balance 790 ml 140 ml 110 ml 900 ml Intake Oral 240 ml 200 ml 1090 ml IV Total 800 ml 0 ml 800 ml Output Urine Total 90 ml 880 ml Estimated Blood Loss 10 ml 100 ml 110 ml # Voids 3 3 # Bowel Movements 0 Exam Gen.- A+ O 1-2 no apparent distress. Easily redirectable Eyes- open conjunctiva clear, pupils equal nonicteric ENT- ears normal, nose normal Neck- supple/trach midline CVS- RRR no murmur or gallop Lungs- CTA GI- NABS/NT soft Musc- moving 4 no obvious deformity Neuro- cranial nerves II through XII intact to gross examination, nonfocal Skin- warm and dry, no rashes/lesions/wounds noted Psych-redirectable, but kind of oppositional in a pleasant way. Lab and Diagnostics Result Diagram: 02/07/17 0532 02/05/17 1100 X-Rays, CTs and MRIs PROCEDURE: X-RAY CHEST ONE VIEW, PORTABLE ([id number]) INDICATIONS: preop TECHNIQUE: One view of the chest was acquired. COMPARISON: None. FINDINGS: Surgical changes and devices: Thoracic vertebral/kyphoplasty changes are present. Lungs and pleura: Chronic interstitial changes most prominent in the apices are unchanged. Mediastinum: Mediastinal contours appear normal. Heart size is normal. Bones and chest wall: No suspicious bony lesions. Overlying soft tissues appear unremarkable. IMPRESSION: Unchanged chronic interstitial changes. Dictated by: Calli Oconnor M.D. on 02/05/2017 at 12:51 Approved by: Calli Oconnor M.D. on 02/05/2017 at 12:51 PROCEDURE: X-RAY LEFT FEMUR, TWO VIEWS ([id number]) INDICATIONS: preop TECHNIQUE: Pre-views of the femur were acquired. COMPARISON: None. FINDINGS: Bones: As previously identified, there is a nondisplaced proximal femoral shaft fracture, affecting the inferior most aspect of the lesser trochanter. Degenerative changes are present at the knee most notable in the medial and patellofemoral compartments. Soft tissues: No suspicious soft tissue calcifications or masses. IMPRESSION: Nondisplaced proximal femoral shaft fracture as above. Dictated by: Calli Oconnor M.D. on 02/05/2017 at 12:52 Approved by: Calli Oconnor M.D. on 02/05/2017 at 12:53 12-lead ECG sinus tach 106 Assessment & Plan 86 year old male admitted through the emergency room with broken hip 02/05. Hx severe back osteoarthritis a/p multiple kyphoplasty presented with mechanical fall this morning, found to have 02/07 patient is apparently confused I am not sure how far this is from baseline. He is happily easily redirectable and has not been a problem yet. I will get a CXR to evaluate his COPD that has not been done during this admission. Repeat labs in the a.m. It is not clear to me whether this patient is on chronic O2 or if this is new. I am adding aggressive pulmonary toilet with incentive spirometry in addition to the nebulizer she is getting. s/p ground level mechanical fall, resultant left proximal femur shaft fx. no s/ s of prodrome prior to fall. -appreciate , pORIF 02/06 -control pain with morphine or oxycodone, will try fentanyl prn -post op dvt ppx, pain management per orthopedic service mild tachycardia, hypertension, POA, likely due to stress response, resolved Hx CAD s/p [place] 1996ishstable, monitor for now, Lipids- adr statins, continue Zetia after surgery COPD, continue qvar bid, albuterol prn, will target [id number]%, o2 supplement as needed -CXR 02/07 severe back osteoarthritis, fracture a/p multiple kyphoplasty, stable, anxiety d/o, ativan prn dispo:likely 3days post op dvt ppx:SCD, rivaxarobaran per ortho Full code VTE Prophylaxis: SCDs (bilateral SCDs), SHARITA Hose (bilateral SHARITA hose thigh- high ordered today), Other (Xarelto 10 mg 35 days postop for DVT prophylaxis) VTE Mechanical Devices: Intermittant Pneumatic CD Dipak Carmona MD February 07, 2017 17:19
--- NOTE | 2017-02-07 18:42 | DRSVH ---
PROCEDURE: X-RAY CHEST ONE VIEW, PORTABLE ([id number]) INDICATIONS: hypoxemia postop TECHNIQUE: One view of the chest was acquired. COMPARISON: [facility], CR, XR CHEST 1VW (PORTABLE), 02/05/2017, 12:14. FINDINGS: Surgical changes and devices: Bony cement injection within the lower thoracic spine. Lungs and pleura: No pleural effusions or pneumothorax. No change in patchy biapical opacities cons istent with scarring. Emphysema. Lungs are otherwise clear. Mediastinum: Mediastinal contours appear normal. Heart size is normal. Bones and chest wall: No suspicious bony lesions. Overlying soft tissues appear unremarkable. IMPRESSION: No acute process. Dictated by: Sheyla cMcormack M.D. on 02/07/2017 at 18:41 Approved by: Sheyla Mccormack M.D. on 02/07/2017 at 18:41
[2017-02-08] VITALS (9 sets, daily range): BP systolic 115–138; BP diastolic 65–77; PULSE 89–110; RESP 18–20; O2SAT 85–97
[2017-02-08] MEDS: HYDROcodone-APAP 5-325 mg Tablet PO PRN ×2 (00:21→04:23)
[2017-02-08] MEDS: Sodium Chloride LOK Flush 10 mL Syringe IVFLUSH SCH ×3 (00:29→14:50)
[2017-02-08 06:09] LABS: BASOPHILS % (AUTO) 0.2 % (0-3); EOSINOPHILS % (AUTO) 2.6 % (0-5); MONOCYTES % (AUTO) 12.8 % (4-12); Mean Corpuscular Hemoglobin 31.8 pg (27.0-35.0); Mean Corpuscular Volume 93.7 fL (81-100); Platelet Count 115 bil/L (150-400)
[2017-02-08 06:27] LABS: Magnesium 2.3 mg/dL (1.6-2.6)
[2017-02-08] MEDS: Senna-Docusate 8.6-50 mg Tablet PO SCH ×2 (08:30→21:00)
[2017-02-08] MEDS: Calcium Carbonate (Oyster Shell) 500 mg Tablet PO SCH ×2 (09:02→16:36)
[2017-02-08] MEDS: Vitamins C,E, Omega-3, Mineral Tablet PO SCH (09:05)
[2017-02-08] MEDS: Sodium Chloride LOK Flush 10 mL Syringe IV SCH ×2 (09:26→14:50)
[2017-02-08] MEDS: Fluticasone-Salmererol 250-50 Inhaler INHALATION SCH ×2 (09:42→21:00)
--- NOTE | 2017-02-08 10:45 | PCM.PNORTH ---
Subjective Date of Service: February 08, 2017 Visit Information: Reason for Visit Left Femur Fracture Surgery/Surgery Date LEFT HIP ORIF 02/06/17 Post-Op Day # 2 Date of Admission: February 05, 2017 at 13:11 Hospital Day # Subjective Patient is disoriented. Spouse by his side. She states he has tried to get out of bed as he has forgotten he broke his hip. She states they were hoping he could go home today but admit he has only walked to the chair and back. She states he is not complaining of pain often. When asked, he states that when he has pain it is localized to his left hip. Spouse states his disorientation and confusion is not baseline and is worsened by the narcotics and sedation. She states he is improving but is not back to normal. Postop General: No Complaints, No Shortness of Breath, No Chest Pain Pain Management: PO Objective Exam Objective Patient sitting up in bed, talking, Vital Signs and I/O Vital Sign - Last Date Time Temp Pulse Resp B/P Pulse Ox O2 Delivery O2 Flow Rate FiO2 02/08/17 09:46 Supplement Oxygen 02/08/17 07:55 95 20 94 1.00 02/08/17 04:18 36.7 116/65 Intake and Output 02/07/17 02/07/17 02/08/17 Cumulative From/Thru 15:00 23:00 07:00 02/05/17 10:06 - 02/08/17 05:35 Intake Total 400 ml 0 ml 2290 ml Output Total 268 ml 100 ml 1358 ml Balance 132 ml -100 ml 932 ml Intake Oral 400 ml 0 ml 1490 ml IV Total 800 ml Output Urine Total 268 ml 100 ml 1248 ml Estimated Blood Loss 110 ml # Voids 2 5 # Bowel Movements 0 0 0 Lab & Micro Results Laboratory Tests Test 02/08/17 05:20 White Blood Count 11.4th/mm3 (3.8-10.1) Red Blood Count 3.49mil/mm3 (4.40-5.80) Hemoglobin 11.1g/dL (13.8-17.2) Hematocrit 32.7% (41.0-50.0) Mean Corpuscular Volume 93.7fL (81-100) Mean Corpuscular Hemoglobin 31.8pg (27.0-35.0) Mean Corpuscular Hemoglobin Concent 33.9% (32.0-37.0) Red Cell Distribution Width 14.7% (12.3-15.4) Platelet Count 115bil/L (150-400) Neutrophils (%) (Auto) 77.0% (40-74) Lymphocytes (%) (Auto) 7.2% (14-46) Monocytes (%) (Auto) 12.8% (4-12) Eosinophils (%) (Auto) 2.6% (0-5) Basophils (%) (Auto) 0.2% (0-3) Sodium Level 134mEq/L (134-144) Potassium Level 4.5mEq/L (3.5-5.2) Chloride Level 97mEq/L (97-108) Carbon Dioxide Level 25mmol/L (18-29) Blood Urea Nitrogen 38mg/dL (8-27) Creatinine 1.37mg/dL (0.76-1.27) Estimat Glomerular Filtration Rate 52mL/min (>59) Glucose Level 111mg/dL (60-99) Calcium Level 8.7mg/dL (8.5-10.1) Magnesium Level 2.3mg/dL (1.6-2.6) Result Diagram: 02/08/1751902/08/17519 General Appearance: Alert, No Acute Distress Extremities: Distal Pulses Palpable, No Compartment Syndrom Noted, Thigh & Calf Soft/Nontender, Tenderness/Swelling Noted (Left hip) Postop Sensory Motor: Distal Motor Intact, Movement in Toes, Distal Sensation Intact, NVI Distally SURGICAL WOUND : Wound Location/Description Island dressing c/d/i, most proximal dressing has some saturation. All will be changed today. Incision General Appearance: No Direct Observation Activity: Ambulate with PT (WBAT with FWW) Catheters: None Assessment & Plan Impression Postoperative day #2 left femur ORIF with long IM nail Problems: Plan Will continue to watch patient's creatinine and GFR. May switch from Xarelto in the AM pending AM labs. Weight-bear as tolerated on the left lower extremity using front-wheeled walker. Continue formal physical therapy for mobility, gait and safety. Continue pain medication as needed with removal of IV pain medication as soon as able. DVT prophylaxis: Xarelto 10 mg daily 35 days postop for DVT prophylaxis. Island dressings are clean dry and intact. Dressing will be changed today and should have daily dressing changes. Follow-up in 2 weeks that [facility] orthopedic clinic with Dr. David Rodriguez with staple removal and application of Steri-Strips and 2 view left femur x -rays on arrival. Patient will be cleared showering and getting wound wet at that time. Follow up in 6 weeks at [facility] orthopedic clinic with Dr. David Hawthorne left two-view femur x-rays on arrival. Orthopedics thanks hospitalist service for their help in the medical management of this patient. Anticipate discharge to alf facility on postop day number 3, 2016 by hospitalist service. Patient's is hoping patient will go home with her but it is unlikely as he has not been ambulating well thus far. Will continue to monitor. VTE Prophylaxis: SCDs (bilateral SCDs), SHARITA Hose (bilateral SHARITA hose thigh- high ordered today), Other (Xarelto 10 mg 35 days postop for DVT prophylaxis) Shayla Echeverria PA-C February 08, 2017 10:45
[2017-02-08] MEDS ORDERED: 0.9% NaCl + KCl 20 mEq/L 1,000 ML IV SCH (11:20)
[2017-02-08] MEDS: 0.9% Sodium Chloride 1,000 ML IV SCH ×2 (12:13→22:01)
--- NOTE | 2017-02-08 17:03 | PCM.PNMED ---
Subjective Date of Service February 08, 2017 Subjective Patient does not have any new complaints of chest pain, dyspnea, nausea or vomiting. His is constantly redirecting him he does have issues with anxiety for which she uses diazepam at home. Between the diazepam and the narcotics he is receiving for pain he is hallucinating here and extremely anxious and continually trying to get out of bed. Exam Vital Signs Vital Sign - Last Date Time Temp Pulse Resp B/P Pulse Ox O2 Delivery O2 Flow Rate FiO2 02/08/17 16:40 Supplement Oxygen 02/08/17 16:40 36.7 89 18 130/76 94 1.00 Intake and Output 02/07/17 02/07/17 02/08/17 Cumulative From/Thru 14:59 22:59 06:59 02/05/17 10:06 - 02/08/17 05:35 Intake Total 400 ml 0 ml 2290 ml Output Total 268 ml 100 ml 1358 ml Balance 132 ml -100 ml 932 ml Intake Oral 400 ml 0 ml 1490 ml IV Total 800 ml Output Urine Total 268 ml 100 ml 1248 ml Estimated Blood Loss 110 ml # Voids 2 5 # Bowel Movements 0 0 0 Exam Gen.- A+ O 1-2 no apparent distress. Easily redirectable Eyes- open conjunctiva clear, pupils equal nonicteric ENT- ears normal, nose normal Neck- supple/trach midline CVS- RRR no murmur or gallop Lungs- CTA GI- NABS/NT soft Musc- moving 4 no obvious deformity Neuro- cranial nerves II through XII intact to gross examination, nonfocal Skin- warm and dry, no rashes/lesions/wounds noted Psych-redirectable, but kind of oppositional in a pleasant way. Lab and Diagnostics Result Diagram: 02/08/1751902/08/17519 X-Rays, CTs and MRIs PROCEDURE: X-RAY CHEST ONE VIEW, PORTABLE ([id number]) INDICATIONS: preop TECHNIQUE: One view of the chest was acquired. COMPARISON: None. FINDINGS: Surgical changes and devices: Thoracic vertebral/kyphoplasty changes are present. Lungs and pleura: Chronic interstitial changes most prominent in the apices are unchanged. Mediastinum: Mediastinal contours appear normal. Heart size is normal. Bones and chest wall: No suspicious bony lesions. Overlying soft tissues appear unremarkable. IMPRESSION: Unchanged chronic interstitial changes. Dictated by: Calli Oconnor M.D. on 02/05/2017 at 12:51 Approved by: Calli Oconnor M.D. on 02/05/2017 at 12:51 PROCEDURE: X-RAY LEFT FEMUR, TWO VIEWS ([id number]) INDICATIONS: preop TECHNIQUE: Pre-views of the femur were acquired. COMPARISON: None. FINDINGS: Bones: As previously identified, there is a nondisplaced proximal femoral shaft fracture, affecting the inferior most aspect of the lesser trochanter. Degenerative changes are present at the knee most notable in the medial and patellofemoral compartments. Soft tissues: No suspicious soft tissue calcifications or masses. IMPRESSION: Nondisplaced proximal femoral shaft fracture as above. Dictated by: Calli Oconnor M.D. on 02/05/2017 at 12:52 Approved by: Calli Oconnor M.D. on 02/05/2017 at 12:53 12-lead ECG sinus tach 106 Assessment & Plan 86 year old male admitted through the emergency room with broken hip 02/05. Hx severe back osteoarthritis a/p multiple kyphoplasty presented with mechanical fall this morning, found to have 02/07 patient is apparently confused I am not sure how far this is from baseline. He is happily easily redirectable and has not been a problem yet. I will get a CXR to evaluate his COPD that has not been done during this admission. Repeat labs in the a.m. It is not clear to me whether this patient is on chronic O2 or if this is new. I am adding aggressive pulmonary toilet with incentive spirometry in addition to the nebulizer she is getting. 02/05 3H/H is stable, white cell count is still having difficulty weaning patient off of oxygen and he is extremely confused. Patient continues to need more care than the think his can provide for him however given his anxiety/ confusion the optimal plan would be to send him home if at all possible. Metabolic encephalopathy/dementia-patient was started back on diazepam 02/07, adding Zyprexa 2.5 mg twice a day 02/08 -Changing patient to tramadol/ po oxycodone/Tylenol discontinuing Dilaudid continuing Celebrex 200 mg daily down from twice a day 02/08 YANELI-IV NS 2L, follow-up BUN/CR 02/09 Acute respiratory failure/COPD exacerbation, continue qvar bid, albuterol prn, will target [id number]%, o2 supplement as needed -CXR 02/07 no acute process -Doxycycline 100 mg twice a day added 02/08 s/p ground level mechanical fall, resultant left proximal femur shaft fx. no s/ s of prodrome prior to fall. -appreciate , pORIF 02/06 -control pain with morphine or oxycodone, will try fentanyl prn -post op dvt ppx, pain management per orthopedic service mild tachycardia, hypertension, POA, likely due to stress response, resolved Hx CAD s/p [place] 1996ishstable, monitor for now, Lipids- adr statins, continue Zetia after surgery severe back osteoarthritis, fracture a/p multiple kyphoplasty, stable, anxiety d/o, ativan prn dispo:likely 3days post op dvt ppx:SCD, rivaxarobaran per ortho Full code VTE Prophylaxis: SCDs (bilateral SCDs), SHARITA Hose (bilateral SHARITA hose thigh- high ordered today), Other (Xarelto 10 mg 35 days postop for DVT prophylaxis) VTE Mechanical Devices: Intermittant Pneumatic CD, Anti-Embolic stockings Dipak Carmona MD February 08, 2017 17:03
[2017-02-08] MEDS: OLANZapine Zydis ODT 5 mg Tablet PO SCH (21:00)
[2017-02-09] VITALS (7 sets, daily range): BP systolic 132–153; BP diastolic 72–83; PULSE 88–101; RESP 18–20; O2SAT 88–96
[2017-02-09 06:54] LABS: Mean Corpuscular Hemoglobin 31.5 pg (27.0-35.0); Mean Corpuscular Volume 94.8 fL (81-100)
[2017-02-09] MEDS: Sodium Chloride LOK Flush 10 mL Syringe IV SCH ×3 (08:30→16:30)
[2017-02-09] MEDS: Sodium Chloride LOK Flush 10 mL Syringe IVFLUSH SCH ×4 (08:30→21:55)
--- NOTE | 2017-02-09 09:53 | PCM.PNORTH ---
Subjective Date of Service: February 09, 2017 Visit Information: Reason for Visit Left Femur Fracture Surgery/Surgery Date LEFT HIP ORIF 02/06/17 Post-Op Day # 3 Date of Admission: February 05, 2017 at 13:11 Hospital Day # Subjective Patient was asleep, spoke with spouse. She states he has become increasingly more aggressive and confused throughout the night. She states they had to restrain him and he has been sleeping with restraints since then. She states she is very concerned about taking him home as she is not sure she has the capacity to care for him in his disoriented state. Postop General: No Complaints, No Shortness of Breath, No Chest Pain Pain Management: PO Objective Exam Objective Sleeping in bed Vital Signs and I/O Vital Sign - Last Date Time Temp Pulse Resp B/P Pulse Ox O2 Delivery O2 Flow Rate FiO2 02/09/17 04:26 101 18 135/78 91 Nasal Cannula 1.00 02/09/17 00:16 36.6 Intake and Output 02/08/17 02/08/17 02/09/17 Cumulative From/Thru 15:00 23:00 07:00 02/05/17 10:06 - 02/09/17 06:06 Intake Total 845 ml 1214 ml 4349 ml Output Total 230 ml 400 ml 1988 ml Balance 615 ml 814 ml 2361 ml Intake Oral 400 ml 0 ml 1890 ml IV Total 445 ml 1214 ml 2459 ml Output Urine Total 230 ml 400 ml 1878 ml Estimated Blood Loss 110 ml # Voids 5 # Bowel Movements 0 Lab & Micro Results Laboratory Tests Test 02/09/17 05:50 White Blood Count 9.9th/mm3 (3.8-10.1) Red Blood Count 3.08mil/mm3 (4.40-5.80) Hemoglobin 9.7g/dL (13.8-17.2) Hematocrit 29.2% (41.0-50.0) Mean Corpuscular Volume 94.8fL (81-100) Mean Corpuscular Hemoglobin 31.5pg (27.0-35.0) Mean Corpuscular Hemoglobin Concent 33.2% (32.0-37.0) Red Cell Distribution Width 14.8% (12.3-15.4) Platelet Count 110bil/L (150-400) Sodium Level 142mEq/L (134-144) Potassium Level 5.0mEq/L (3.5-5.2) Chloride Level 105mEq/L (97-108) Carbon Dioxide Level 26mmol/L (18-29) Blood Urea Nitrogen 36mg/dL (8-27) Creatinine 1.08mg/dL (0.76-1.27) Estimat Glomerular Filtration Rate 69mL/min (>59) Glucose Level 92mg/dL (60-99) Calcium Level 8.2mg/dL (8.5-10.1) Result Diagram: 02/09/17 0550 02/09/17 0550 General Appearance: No Acute Distress Extremities: Distal Pulses Palpable, No Compartment Syndrom Noted, Thigh & Calf Soft/Nontender Postop Sensory Motor: Distal Motor Intact, Movement in Toes SURGICAL WOUND : Wound Location/Description Only able to view dressings on distal portion of thigh. They were clean and dry. No saturation of bandage. Incision General Appearance: No Direct Observation Activity: Ambulate with PT (WBAT with FWW) Catheters: None Assessment & Plan Impression Postoperative day #3 left femur ORIF with long IM nail. Problems: Plan Patient has reacted poorly to valium and narcotics and I would recommend we avoid these at all costs. I recommend Celebrex or something similar as well as Tylenol. Patient only has one kidney so we must be careful with our dosing and should continue to monitor labs. Patient's and family sound as if they are agreeable to a SNF as the confused does not appear to be lifting from the patient and he has become combative. Weight-bear as tolerated on the left lower extremity using front-wheeled walker. Continue formal physical therapy for mobility, gait and safety. DVT prophylaxis: Xarelto 10 mg daily 35 days postop for DVT prophylaxis. Island dressings are clean dry and intact. Dressing will be changed today and should have daily dressing changes. Follow-up in [address] [facility] orthopedic clinic with Dr. David Rodriguez with staple removal and application of Steri-Strips and 2 view left femur x -rays on arrival. Patient will be cleared showering and getting wound wet at that time. Follow up in [address] [facility] orthopedic clinic with Dr. David Hatwhorne left two-view femur x-rays on arrival. Orthopedics thanks hospitalist service for their help in the medical management of this patient. Anticipate discharge to intermediate facility on postop day number 3, 2016 by hospitalist service. At this time, I would say he can be transferred when cleared medically as he is stable orthopedically. VTE Prophylaxis: SCDs (bilateral SCDs), SHARITA Hose (bilateral SHARITA hose thigh- high ordered today), Other (Xarelto 10 mg 35 days postop for DVT prophylaxis) Shayla Echeverria PA-C February 09, 2017 09:53
--- NOTE | 2017-02-09 09:57 | PCM.DIORTH ---
Ortho Discharge Instruction Date of Service: February 09, 2017 Dates of Hospitalization Date of Hospital Admission February 05, 2017 at 13:11 Providers Admitting Physician: Fredis Muir MD Primary Care Physician: Adrien Dowd DO Attending Physician: Fredis Muir MD Activity Left Lower Extremity: Weight Bearing as tolerated Discharge Assist Device: Front Wheeled Walker Dressing and Incisional Care Discharge Dressing Care: Change soiled dressing Discharge Hygiene: May shower (with dressing covered) Additional Instructions Discharge Instructions Weight-bear as tolerated on the left lower extremity using front-wheeled walker. Continue formal physical therapy for mobility, gait and safety. DVT prophylaxis: Xarelto 10 mg daily 35 days postop for DVT prophylaxis. Patient should have daily dressing changes, keep incision covered until 2 week follow up. Patient may shower with dressings covered, however a sponge bath seems more practical to avoid getting the incision or dressings wet. Follow-up in 2 weeks that [facility] orthopedic clinic with Dr. David Rodriguez with staple removal and application of Steri-Strips and 2 view left femur x -rays on arrival. Patient will be cleared showering and getting wound wet at that time. Follow up in 6 weeks at [facility] orthopedic clinic with Dr. David Hawthorne left two-view femur x-rays on arrival. Shayla Echeverria PA-C February 09, 2017 09:56
[2017-02-09] MEDS: Senna-Docusate 8.6-50 mg Tablet PO SCH ×2 (10:16→21:48)
[2017-02-09] MEDS: Fluticasone-Salmererol 250-50 Inhaler INHALATION SCH ×2 (10:18→20:30)
[2017-02-09] MEDS: 0.9% Sodium Chloride 1,000 ML IV SCH (10:19)
[2017-02-09] MEDS: Calcium Carbonate (Oyster Shell) 500 mg Tablet PO SCH ×2 (10:20→10:25)
[2017-02-09] MEDS: Vitamins C,E, Omega-3, Mineral Tablet PO SCH (10:21)
[2017-02-09] MEDS: OLANZapine Zydis ODT 5 mg Tablet PO SCH (10:23)
--- NOTE | 2017-02-09 14:20 | PCM.PNMED ---
Subjective Date of Service February 09, 2017 Subjective Patient reportedly was up all night pulling on things. To that end we have discontinued telemetry, Abreu catheter, and diabetes in the hope that he is less the pulmonic will be less agitating to them. No complaints of chest pain, dyspnea, nausea and vomiting. His reports that he is less complaints of pain and did pretty well with physical therapy today. Exam Vital Signs Vital Sign - Last Date Time Temp Pulse Resp B/P Pulse Ox O2 Delivery O2 Flow Rate FiO2 02/09/17 13:05 98 88 Nasal Cannula 1.00 02/09/17 09:58 36.8 18 153/80 Intake and Output 02/08/17 02/08/17 02/09/17 Cumulative From/Thru 15:00 23:00 07:00 02/05/17 10:06 - 02/09/17 06:06 Intake Total 845 ml 1214 ml 4349 ml Output Total 230 ml 400 ml 1988 ml Balance 615 ml 814 ml 2361 ml Intake Oral 400 ml 0 ml 1890 ml IV Total 445 ml 1214 ml 2459 ml Output Urine Total 230 ml 400 ml 1878 ml Estimated Blood Loss 110 ml # Voids 5 # Bowel Movements 0 Exam Gen.-Arousable this afternoon, no apparent distress. Eyes- open conjunctiva clear, pupils equal nonicteric ENT- ears normal, nose normal Neck- supple/trach midline CVS- RRR no murmur or gallop Lungs- CTA GI- NABS/NT soft Musc- moving 4 no obvious deformity Neuro- cranial nerves II through XII intact to gross examination, nonfocal Skin- warm and dry, no rashes/lesions/wounds noted psych- Sleepy, confused Lab and Diagnostics Result Diagram: 02/09/17 0550 02/09/17 0550 X-Rays, CTs and MRIs PROCEDURE: X-RAY CHEST ONE VIEW, PORTABLE ([id number]) INDICATIONS: preop TECHNIQUE: One view of the chest was acquired. COMPARISON: None. FINDINGS: Surgical changes and devices: Thoracic vertebral/kyphoplasty changes are present. Lungs and pleura: Chronic interstitial changes most prominent in the apices are unchanged. Mediastinum: Mediastinal contours appear normal. Heart size is normal. Bones and chest wall: No suspicious bony lesions. Overlying soft tissues appear unremarkable. IMPRESSION: Unchanged chronic interstitial changes. Dictated by: Calli Oconnor M.D. on 02/05/2017 at 12:51 Approved by: Calli Oconnor M.D. on 02/05/2017 at 12:51 PROCEDURE: X-RAY LEFT FEMUR, TWO VIEWS ([id number]) INDICATIONS: preop TECHNIQUE: Pre-views of the femur were acquired. COMPARISON: None. FINDINGS: Bones: As previously identified, there is a nondisplaced proximal femoral shaft fracture, affecting the inferior most aspect of the lesser trochanter. Degenerative changes are present at the knee most notable in the medial and patellofemoral compartments. Soft tissues: No suspicious soft tissue calcifications or masses. IMPRESSION: Nondisplaced proximal femoral shaft fracture as above. Dictated by: Calli Oconnor M.D. on 02/05/2017 at 12:52 Approved by: Calli Oconnor M.D. on 02/05/2017 at 12:53 12-lead ECG sinus tach 106 Assessment & Plan 86 year old male admitted through the emergency room with broken hip 02/05. Hx severe back osteoarthritis a/p multiple kyphoplasty presented with mechanical fall this morning, found to have 02/07 patient is apparently confused I am not sure how far this is from baseline. He is happily easily redirectable and has not been a problem yet. I will get a CXR to evaluate his COPD that has not been done during this admission. Repeat labs in the a.m. It is not clear to me whether this patient is on chronic O2 or if this is new. I am adding aggressive pulmonary toilet with incentive spirometry in addition to the nebulizer she is getting. 02/08 H/H is stable, white cell count is still slightly elevated. Having difficulty weaning patient off of oxygen and he is extremely confused. Patient continues to need more care than the think his can provide for him however given his anxiety/confusion the optimal plan would be to send him home if at all possible. 02/09 patient required restraints but settled down last night. Removing telemetry, Abreu, IVF so he is less agitated and is less to pull at. Starting generous bedtime dosing diazepam/Seroquel in the hope that he sleeps through the night and does not require restraints or a sitter so he may be discharged to SNF 02/10. #Anemia-not unexpected after long bone fracture, dilutional got 2 L since yesterday. Needs follow-up next few days 02/09 #Metabolic encephalopathy/dementia-patient was started back on diazepam 02/07, -Changing patient to tramadol/ po oxycodone/Tylenol discontinuing Dilaudid continuing Celebrex 200 mg daily down from twice a day 02/08 -Discontinue Zyprexa 2.5 mg twice a day 02/08-02/09, trial Seroquel with generous doses 25 mg and 5 mg diazepam at bedtime #YANELI-IV NS 2L, f BUN/CR improved 02/09, #Acute respiratory failure/COPD exacerbation, continue qvar bid, albuterol prn, will target [id number]%, o2 supplement as needed -CXR 02/07 no acute process -Doxycycline 100 mg twice a day added 02/08 #s/p ground level mechanical fall, resultant left proximal femur shaft fx. no s/ s of prodrome prior to fall. -appreciate , pORIF 02/06 -control pain with morphine or oxycodone, will try fentanyl prn -post op dvt ppx, pain management per orthopedic service #mild tachycardia, hypertension, POA, likely due to stress response, resolved #Hx CAD s/p [place] 1996ishstable, monitor for now, #Lipids- adr statins, continue Zetia after surgery #severe back osteoarthritis, fracture a/p multiple kyphoplasty, stable, #anxiety d/o, ativan prn dispo:likely 3days post op dvt ppx:SCD, rivaxarobaran per ortho Full code VTE Prophylaxis: SCDs (bilateral SCDs), SHARITA Hose (bilateral SHARITA hose thigh- high ordered today), Other (Xarelto 10 mg 35 days postop for DVT prophylaxis) VTE Mechanical Devices: Intermittant Pneumatic CD, Anti-Embolic stockings Dipak Carmona MD February 09, 2017 14:20
[2017-02-10 04:50] VITALS: BP 126/80; PULSE 91; RESP 19; O2SAT 97
[2017-02-10 05:00] VITALS: PULSE 72; O2SAT 93
[2017-02-10 05:36] LABS: BASOPHILS % (AUTO) 0.7 % (0-3); EOSINOPHILS % (AUTO) 7.3 % (0-5); MONOCYTES % (AUTO) 14.4 % (4-12); Mean Corpuscular Hemoglobin 31.6 pg (27.0-35.0); Mean Corpuscular Volume 93.1 fL (81-100); NEUTROPHILS % (AUTO) 61.9 % (40-74); Platelet Count 153 bil/L (150-400)
[2017-02-10 07:45] VITALS: PULSE 76; O2SAT 94
[2017-02-10] MEDS: Calcium Carbonate (Oyster Shell) 500 mg Tablet PO SCH ×2 (08:00→16:07)
[2017-02-10] MEDS: Sodium Chloride LOK Flush 10 mL Syringe IVFLUSH SCH ×2 (09:17→16:34)
[2017-02-10] MEDS: Fluticasone-Salmererol 250-50 Inhaler INHALATION SCH ×2 (09:17→21:35)
[2017-02-10] MEDS: Vitamins C,E, Omega-3, Mineral Tablet PO SCH (09:18)
[2017-02-10] MEDS: Senna-Docusate 8.6-50 mg Tablet PO SCH ×3 (09:18→21:35)
--- NOTE | 2017-02-10 10:49 | PCM.DIMED ---
Discharge Instructions Date of Service February 10, 2017 Dates of Hospitalization February 05, 2017 at 13:11 Discharge Diagnosis Discharge Diagnosis Left hip fracture, COPD exacerbation, encephalopathy, anemia Diet Discharge Diet: No restrictions Activity Discharge Activity: No restrictions Call your provider Call your provider for: Fever or Chills, Shortness of breath Patient Instructions Patient Instructions Patient going to SNF hopefully we can wean him off oxygen he is normally not on it but had been on it previously. He is very anxious and has a tendency to mobilize and is extremely sensitive to narcotic medications. He is also benzodiazepine dependent. Follow-up plan Patient going to SNF for a bit. Needs follow-up with orthopedics and primary care provider. Follow-up Provider: Marcelo Beckwith DO Follow-up with PCP in: Other (around February 18 for hip follow-up orthopedics. Call.) Provider: Adrien Dowd DO Follow-up in: Other (pollen sniffer at least on discharge.) Dipak Carmona MD February 10, 2017 10:49
[2017-02-10 10:55] VITALS: BP 135/74; PULSE 95; RESP 18; O2SAT 95
[2017-02-10] MEDS ORDERED: Senna/Docusate Sodium PO (11:04)
[2017-02-10] MEDS ORDERED: POLY17PO6 PO (11:04)
[2017-02-10] MEDS ORDERED: ALBU2.5V4 NEB (11:04)
[2017-02-10] MEDS ORDERED: MIRT15TA6 PO (11:04)
[2017-02-10] MEDS ORDERED: DIAZ5TAB PO (11:04)
[2017-02-10] MEDS ORDERED: Calcium Carbonate PO (11:04)
[2017-02-10] MEDS ORDERED: DOCU-41 PO (11:04)
[2017-02-10] MEDS ORDERED: Therapeutic Multivit/Minerals PO (11:04)
[2017-02-10] MEDS ORDERED: MAGN800O PO (11:04)
[2017-02-10] MEDS ORDERED: DOXY100T2 PO (11:04)
[2017-02-10] MEDS ORDERED: RIVA10TA PO (11:04)
[2017-02-10] MEDS ORDERED: CHOL400T PO (11:04)
[2017-02-10] MEDS ORDERED: Bisacodyl RECTAL (11:04)
[2017-02-10] MEDS ORDERED: QUET25TA73 PO ×3 (11:04)
[2017-02-10] MEDS ORDERED: OXYC5TAB72 PO (11:04)
[2017-02-10] MEDS ORDERED: VIT1TABL25 PO (11:04)
--- NOTE | 2017-02-10 12:28 | PCM.PNORTH ---
Subjective Date of Service: February 10, 2017 Visit Information: Reason for Visit Left Femur Fracture Surgery/Surgery Date LEFT HIP ORIF 02/06/17 Post-Op Day # Date of Admission: February 05, 2017 at 13:11 Hospital Day # Subjective Status post day #4 left femur ORIF via IM nail. Patient states he is doing pretty well. States that his pain is well controlled. He feels like he is doing okay. Nursing states that he did have a significant swallowing problem this morning and may have choked on something. They have reported possible aspiration and will continue workup for this. Patient states he feels okay, but does have some dementia. Postop General: No Complaints, No Shortness of Breath, No Chest Pain Pain Management: PO Objective Exam Objective Patient is alert and oriented 3. Answering questions appropriately. Patient is sitting up in the bed and not in acute distress today. Dressing is intact, slightly saturated and reinforced from yesterday. Calf is soft and nontender. Sensation and pulses intact, patient able to wiggle toes. Upon dressing change today the wound is completely dry distally, proximal wound is dry, middle wound for the locking of the plate through the femoral neck has trace bleeding. Patient did have an episode of choking on some food and/or liquid. He is not short of breath today. Answering questions appropriately and does not appear in distress as far as pain or respiratory distress. Vital Signs and I/O Vital Sign - Last Date Time Temp Pulse Resp B/P Pulse Ox O2 Delivery O2 Flow Rate FiO2 02/10/17 10:55 36.6 95 18 135/74 95 Room Air 02/10/17 07:45 1.00 Intake and Output 02/09/17 02/09/17 02/10/17 Cumulative From/Thru 14:59 22:59 06:59 02/05/17 10:06 - 02/10/17 04:50 Intake Total 686 ml 300 ml 5335 ml Output Total 800 ml 450 ml 3238 ml Balance -114 ml -150 ml 2097 ml Intake Oral 300 ml 300 ml 2490 ml IV Total 386 ml 2845 ml Output Urine Total 800 ml 450 ml 3128 ml Estimated Blood Loss 110 ml # Voids 2 7 # Bowel Movements 1 0 1 Lab & Micro Results Laboratory Tests Test 02/10/17 05:00 White Blood Count 8.8th/mm3 (3.8-10.1) Red Blood Count 3.35mil/mm3 (4.40-5.80) Hemoglobin 10.6g/dL (13.8-17.2) Hematocrit 31.2% (41.0-50.0) Mean Corpuscular Volume 93.1fL (81-100) Mean Corpuscular Hemoglobin 31.6pg (27.0-35.0) Mean Corpuscular Hemoglobin Concent 34.0% (32.0-37.0) Red Cell Distribution Width 15.2% (12.3-15.4) Platelet Count 153bil/L (150-400) Neutrophils (%) (Auto) 61.9% (40-74) Lymphocytes (%) (Auto) 15.5% (14-46) Monocytes (%) (Auto) 14.4% (4-12) Eosinophils (%) (Auto) 7.3% (0-5) Basophils (%) (Auto) 0.7% (0-3) Sodium Level 141mEq/L (134-144) Potassium Level 4.8mEq/L (3.5-5.2) Chloride Level 106mEq/L (97-108) Carbon Dioxide Level 25mmol/L (18-29) Blood Urea Nitrogen 32mg/dL (8-27) Creatinine 0.97mg/dL (0.76-1.27) Estimat Glomerular Filtration Rate 78mL/min (>59) Glucose Level 95mg/dL (60-99) Calcium Level 8.6mg/dL (8.5-10.1) Result Diagram: 02/10/17 0500 02/10/17 0500 SURGICAL WOUND : Incision General Appearance: No Direct Observation Activity: Ambulate with PT (WBAT with FWW) Catheters: None Assessment & Plan Impression Status post day #4 left femur ORIF via IM nail. Patient states he is stable and feeling well. Nursing reports possible aspiration and choking this morning. Pain well controlled. Problems: Plan Patient has reacted poorly to valium and narcotics and I would recommend we avoid these at all costs. I recommend Celebrex or something similar as well as Tylenol. Patient only has one kidney so we must be careful with our dosing and should continue to monitor labs. Patient's and family sound as if they are agreeable to a SNF as the confused does not appear to be lifting from the patient and he has become combative on postop day #2, seems to be doing better today. Weight-bear as tolerated on the left lower extremity using front-wheeled walker. Continue formal physical therapy for mobility, gait and safety. DVT prophylaxis: Xarelto 10 mg daily 35 days postop for DVT prophylaxis. Dressing was changed today. Dressings will be changed on an as-needed basis if saturating, keep wound covered until the 2 week postoperative appointment. Follow-up in 2 weeks that [facility] orthopedic clinic with Dr. David Rodriguez with staple removal and application of Steri-Strips and 2 view left femur x -rays on arrival. Patient will be cleared showering and getting wound wet at that time. Follow up in 6 weeks at [facility] orthopedic clinic with Dr. David Hawthorne left two-view femur x-rays on arrival. Orthopedics thanks hospitalist service for their help in the medical management of this patient. Anticipate discharge to [facility] facility when medically stable by hospitalist service. At this time, I would say he can be transferred when cleared medically as he is stable orthopedically. VTE Prophylaxis: SCDs (bilateral SCDs), SHARITA Hose (bilateral SHRAITA hose thigh- high ordered today), Other (Xarelto 10 mg 35 days postop for DVT prophylaxis) Angus Clarke PA-C February 10, 2017 12:28
--- NOTE | 2017-02-10 13:59 | PCM.DC.MED ---
Discharge Summary Date of Service February 10, 2017 Dates of Hospitalization Date of Hospital Admission February 05, 2017 at 13:11 Date of Discharge: February 10, 2017 Providers: Admitting Physician: Fredis Muir MD Primary Care Physician: Adrien Dowd DO Attending Physician: Fredis Muir MD Diagnosis at Time of Discharge Diagnosis at Time of Discharge Left hip fracture, COPD exacerbation, encephalopathy, anemia Consultations Ortho, Sheu Procedures XRay, CTs & MRIs X-RAY CHEST ONE VIEW, PORTABLE ([id number]) 02/05 Surgical changes and devices: Thoracic vertebral/kyphoplasty changes are present. Lungs and pleura: Chronic interstitial changes most prominent in the apices are unchanged. Mediastinum: Mediastinal contours appear normal. Heart size is normal. Bones and chest wall: No suspicious bony lesions. Overlying soft tissues appear unremarkable. IMPRESSION: Unchanged chronic interstitial changes. Dictated by: Calli Oconnor M.D. on 02/05/2017 at 12:51 X-RAY LEFT FEMUR, TWO VIEWS 02/05 IMPRESSION: Nondisplaced proximal femoral shaft fracture as above. Approved by: Calli Oconnor M.D. on 02/05/2017 at 12:53 ECG 12 Lead sinus tach 106 Invasive Procedures Date of Service: February 06, 2017 ORIF L hip Pre Operative Diagnosis Left hip subtrochanteric femur fracture Post Operative Diagnosis Same Procedure Left hip closed reduction intramedullary nail fixation Surgeon Surgeon: David Rodriguez Assistants: Mich Hernandez Indication for Procedure Left hip/subtrochanteric femur fracture Brief History 86 year old male with remote history [place], fomer smoker, COPD, HLD, severe back osteoarthritis a/p multiple kyphoplasty presented with mechanical fall this morning. Patient and dated that, there were outside of the house, patient tripped over extension cord, landed on the ground on the left side on the wooden deck, hurt his lt hip, lt elbow and mildly hit head. Patient denied chest pain, difficulty breathing, palpitation, blurry vision, nausea prior to fall. Patient did lose consciousness as per , not confused. called her son to bring to hospital. Of note, pt usually ambulates without any assistance at home and outside. can walk many blocks without chest pain,SOB. Patient denied any fever, chills, recent sickness, nausea, vomiting, diarrhea, urinary complaints. recent travel. pt used to use home oxygen until 2yrs ago before he moved to [place], for past 2yrs, Spo2 remained 90-95% on RA, didn't require O2, denied hospitalization with COPD. ED VS [id number], 68, 18, 93% on RA, afebrile. femur/knee/hip xray showed Nondisplaced proximal femoral shaft fracture. CXR/labs unremarkable. EKG-sinus [id number] Hospital Course 86 year old male admitted through the emergency room with broken hip 02/05. Hx severe back osteoarthritis a/p multiple kyphoplasty presented with mechanical fall this morning, found to have 02/07 patient is apparently confused I am not sure how far this is from baseline. He is happily easily redirectable and has not been a problem yet. I will get a CXR to evaluate his COPD that has not been done during this admission. Repeat labs in the a.m. It is not clear to me whether this patient is on chronic O2 or if this is new. I am adding aggressive pulmonary toilet with incentive spirometry in addition to the nebulizer she is getting. 02/08 H/H is stable, white cell count is still slightly elevated. Having difficulty weaning patient off of oxygen and he is extremely confused. Patient continues to need more care than the think his can provide for him however given his anxiety/confusion the optimal plan would be to send him home if at all possible. 02/09 patient required restraints but settled down last night. Removing telemetry, Abreu, IVF so he is less agitated and is less to pull at. Starting generous bedtime dosing diazepam/Seroquel in the hope that he sleeps through the night and does not require restraints or a sitter so he may be discharged to SNF 02/10. 02/10 with medication adjustments patient had a calm night and is for discharge today. #Anemia-not unexpected after long bone fracture, dilutional got 2 L since yesterday. Needs follow-up next few days 02/09 #Metabolic encephalopathy/dementia-patient was started back on diazepam 02/07, -Changing patient to tramadol/ po oxycodone/Tylenol discontinuing Dilaudid continuing Celebrex 200 mg daily down from twice a day 02/08 -Discontinue Zyprexa 2.5 mg twice a day 02/08-02/09, trial Seroquel with generous doses 25 mg and 5 mg diazepam at bedtime #YANELI-IV NS 2L, f BUN/CR improved 02/09, #Acute respiratory failure/COPD exacerbation, continue qvar bid, albuterol prn, will target [id number]%, o2 supplement as needed -CXR 02/07 no acute process -Doxycycline 100 mg twice a day added 02/08 #s/p ground level mechanical fall, resultant left proximal femur shaft fx. no s/ s of prodrome prior to fall. -appreciate , pORIF 02/06 -control pain with morphine or oxycodone, will try fentanyl prn -post op dvt ppx, pain management per orthopedic service #mild tachycardia, hypertension, POA, likely due to stress response, resolved #Hx CAD s/p [place] 1996ishstable, monitor for now, #Lipids- adr statins, continue Zetia after surgery #severe back osteoarthritis, fracture a/p multiple kyphoplasty, stable, #anxiety d/o, ativan prn dispo:likely 3days post op dvt ppx:SCD, rivaxarobaran per ortho Full code Exam Vital Signs (Last) Date Time Temp Pulse Resp B/P Pulse Ox O2 Delivery O2 Flow Rate FiO2 02/10/17 13:45 Nasal Cannula 1.00 02/10/17 10:55 36.6 95 18 135/74 95 Exam Gen. Having assistance from commode to bed, no apparent distress. Eyes- open conjunctiva clear, pupils equal nonicteric ENT- ears normal, nose normal Neck- supple/trach midline CVS-normal rate Lungs- regular, nonlabored no accessory muscle usage GI- flat Musc- moving 4 no obvious deformity Neuro- cranial nerves II through XII intact to gross examination, nonfocal Skin- warm and dry, no rashes/lesions/wounds noted psych-awake and cooperative Test 02/05/17 11:00 02/05/17 17:33 02/08/17 05:20 02/10/17 05:00 Total Bilirubin 0.8mg/dL (0.0-1.2) Aspartate Amino Transf (AST/SGOT) 25U/L (0-50) Alanine Aminotransferase (ALT/SGPT) 18U/L (0-44) Alkaline Phosphatase 94U/L (25-160) Total Protein 7.1g/dL (6.4-8.4) Albumin 3.9g/dL (3.4-5.0) Urine Color Dark yellow (YELLOW) Urine Appearance Clear (CLEAR,HAZY) Urine pH 6.0 (5.0-8.0) Urine Specific Jackson 1.025 (1.003-1.035) Urine Protein 30mg/dL (NEG,TRACE) Urine Glucose (UA) Negativemg/dL (NEGATIVE) Urine Ketones 15mg/dL (NEGATIVE) Urine Occult Blood Negative (NEGATIVE) Urine Nitrite Negative (NEGATIVE) Urine Bilirubin Negative (NEGATIVE) Urine Urobilinogen Normalmg/dL (NORMAL) Urine Leukocyte Esterase Negative (NEGATIVE) Urine RBC 0-2/hpf (0-2) Urine WBC 0-5/hpf (0-5) Urine Epithelial Cells Occasional/hpf (NONE-MOD) Urine Crystals None seen (NONE SEEN) Urine Bacteria None/hpf (NONE-FEW) Urine Hyaline Casts None/lpf (NONE) Urine Granular Casts None seen (NONE SEEN) Urine Waxy Casts None seen (NONE SEEN) Urine Red Blood Cell Casts None seen (NONE SEEN) Urine White Blood Cell Casts None seen (NONE SEEN) Urine Mucus None seen (None Seen) Urine Trichomonas None seen (NONE SEEN) Urine Yeast None (NONE SEEN) Urinalysis Comment None Urine Culture Reflexed Not indicated Magnesium Level 2.3mg/dL (1.6-2.6) White Blood Count 8.8th/mm3 (3.8-10.1) Red Blood Count 3.35mil/mm3 (4.40-5.80) Hemoglobin 10.6g/dL (13.8-17.2) Hematocrit 31.2% (41.0-50.0) Mean Corpuscular Volume 93.1fL (81-100) Mean Corpuscular Hemoglobin 31.6pg (27.0-35.0) Mean Corpuscular Hemoglobin Concent 34.0% (32.0-37.0) Red Cell Distribution Width 15.2% (12.3-15.4) Platelet Count 153bil/L (150-400) Neutrophils (%) (Auto) 61.9% (40-74) Lymphocytes (%) (Auto) 15.5% (14-46) Monocytes (%) (Auto) 14.4% (4-12) Eosinophils (%) (Auto) 7.3% (0-5) Basophils (%) (Auto) 0.7% (0-3) Sodium Level 141mEq/L (134-144) Potassium Level 4.8mEq/L (3.5-5.2) Chloride Level 106mEq/L (97-108) Carbon Dioxide Level 25mmol/L (18-29) Blood Urea Nitrogen 32mg/dL (8-27) Creatinine 0.97mg/dL (0.76-1.27) Estimat Glomerular Filtration Rate 78mL/min (>59) Glucose Level 95mg/dL (60-99) Calcium Level 8.6mg/dL (8.5-10.1) Discharge Medications Discharge Medications ([Calcium Carbonate]) 500 MG TABLET 500 MG PO BIDWM Prescribed by: DAGOBERTO KHAN MD ([Senna/Docusate Sodium]) 1 TABLET TABLET 1 TABLET PO BID Prescribed by: DAGOBERTO KHAN MD ([Therapeutic Multivit/Minerals]) 1 TABLET TABLET 1 TABLET PO DAILY Prescribed by: DAGOBERTO KHAN MD Cholecalciferol (Vitamin D3) (Vitamin D3) 400 Unit Tablet 2,000 UNIT PO BIDWM Prescribed by: DAGOBERTO KHAN MD Docusate Sodium (Colace) 100 Mg Capsule 100 MG PO BID Prescribed by: DAGOBERTO KHAN MD Doxycycline Hyclate (Doxycycline Hyclate) 100 Mg Tablet 100 MG PO BID Prescribed by: DAGOBERTO KHAN MD Ezetimibe (Zetia) 10 Mg Tablet 10 MG PO Every other day (Reported) Fluticasone/Salmeterol (Advair 250-50 Diskus) 60 Puff/Inh Disk 1 PUFF IH BID ( Reported) Mirtazapine (Mirtazapine) 15 Mg Tablet 15 MG PO BID Prescribed by: DAGOBERTO KHAN MD Quetiapine Fumarate (Quetiapine Fumarate) 25 Mg Tablet 25 MG PO HS Prescribed by: DAGOBERTO KHAN MD Quetiapine Fumarate (Quetiapine Fumarate) 25 Mg Tablet 25 MG PO BID Prescribed by: DAGOBERTO KHAN MD Rivaroxaban (Xarelto) 10 Mg Tablet 10 MG PO DAILY Prescribed by: DAGOBERTO KHAN MD Vit A,C & E/Lutein/Minerals (Ocuvite with Lutein Tablet) 1 Each Tablet 1 TABLET PO DAILY Prescribed by: DAGOBERTO KHAN MD As needed ([Bisacodyl]) 10 MG SUPP 10 MG RECTAL DAILY PRN PRN For Constipation Prescribed by: DAGOBERTO KHAN MD Albuterol HFA (Proair HFA) 8.5 Gm Hfa.aer.ad 2 PUFFS INHALATION Q4H PRN PRN For Shortness of Breath (Reported) Albuterol Neb Soln (Albuterol Neb Soln) 2.5 Mg/3 Ml Vial.neb 2.5 MG NEB Q2H PRN PRN For Shortness of Breath Prescribed by: DAGOBERTO KHAN MD Diazepam (Valium) 5 Mg Tablet 2.5 MG PO TID PRN PRN For Anxiety Prescribed by: DAGOBERTO KHAN MD Magnesium Hydroxide (Milk of Magnesia) 2,400 Mg/10 Ml Oral.susp 30 ML PO HS PRN PRN For Constipation Prescribed by: DAGOBERTO KHAN MD Polyethylene Glycol 3350 (Miralax) 17 Gm Powd.pack 17 GM PO DAILY PRN PRN For Constipation Prescribed by: DAGOBERTO KHAN MD Quetiapine Fumarate (Quetiapine Fumarate) 25 Mg Tablet 25 MG PO DAILY@00,22,23 PRN PRN For Agitation Prescribed by: DAGOBERTO KHAN MD oxyCODONE (oxyCODONE) 5 Mg Tablet 5-10 MG PO Q4H PRN PRN For Severe Pain Prescribed by: DAGOBERTO KHAN MD Miscellaneous Medications Folic Acid (Folic Acid) 0.4 Mg Tablet 0.4 MG PO (Reported) Followup Plan Follow-up plan Patient going to SNF for a bit. Needs follow-up with orthopedics and primary care provider. Discharge Diet: No restrictions Discharge Activity: No restrictions Patient Instructions Patient going to SNF hopefully we can wean him off oxygen he is normally not on it but had been on it previously. He is very anxious and has a tendency to mobilize and is extremely sensitive to narcotic medications. He is also benzodiazepine dependent. Follow-up Provider: Marcelo Beckwith DO Follow-up with PCP in: Other (around February 18 for hip follow-up orthopedics. Call.) Provider: Adrien Dowd DO Follow-up in: Other (pollen sniffer at least on discharge.) Time spent >30min copies to: Adrien Dowd Andris E MD February 10, 2017 13:59
[2017-02-10 16:44] VITALS: BP 145/77; PULSE 83; RESP 18; O2SAT 95
[2017-02-10 19:42] VITALS: BP 140/70; PULSE 92; RESP 18; O2SAT 94
[2017-02-11] MEDS: Sodium Chloride LOK Flush 10 mL Syringe IVFLUSH SCH ×2 (00:58→08:30)
[2017-02-11 05:00] VITALS: BP 153/85; PULSE 79; RESP 21; O2SAT 92
--- NOTE | 2017-02-11 07:27 | PCM.PNORTH ---
Subjective Date of Service: February 11, 2017 Visit Information: Reason for Visit Left Femur Fracture Surgery/Surgery Date LEFT HIP ORIF 02/06/17 Post-Op Day # Date of Admission: February 05, 2017 at 13:11 Hospital Day # Subjective Found patient dosing this morning and easily awakened. No complaints of pain at this time. 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 Postop General: No Complaints, No Shortness of Breath, No Chest Pain Pain Management: PO Objective Exam Objective We can communicative and answers questions and follows commands appropriately. Postoperative dressing is clean dry and intact Calf and thigh are soft and nontender Toe wiggle and sensation are intact at left lower extremity distally Abreu is absent Bilateral SCDs are in place Bilateral SHARITA hose are in place Minimal gait with physical therapy. Physical therapies Recommendation for discharge to [facility] with PT Vital Signs and I/O Vital Sign - Last Date Time Temp Pulse Resp B/P Pulse Ox O2 Delivery O2 Flow Rate FiO2 02/11/17 05:00 36.7 79 21 153/85 92 Nasal Cannula 1.00 Intake and Output 02/10/17 02/10/17 02/11/17 Cumulative From/Thru 15:00 23:00 07:00 02/05/17 10:06 - 02/11/17 05:00 Intake Total 800 ml 200 ml 6335 ml Output Total 840 ml 250 ml 4328 ml Balance -40 ml -50 ml 2007 ml Intake Oral 800 ml 200 ml 3490 ml IV Total 2845 ml Output Urine Total 840 ml 250 ml 4218 ml Estimated Blood Loss 110 ml # Voids 7 # Bowel Movements 1 2 Result Diagram: 02/10/17 0500 02/10/17 0500 General Appearance: Cooperative, No Acute Distress Extremities: No Compartment Syndrom Noted, Thigh & Calf Soft/Nontender Postop Sensory Motor: Distal Motor Intact, Movement in Toes, Distal Sensation Intact SURGICAL WOUND : Incision General Appearance: No Direct Observation Activity: Ambulate with PT (WBAT left lower extremity with FWW) Catheters: None Assessment & Plan Plan Postop day #5 from left long femoral IM nail placed on 02/06/[address] David castaneda. Weight-bear as tolerated on the left lower extremity using front-wheeled walker. Continue formal physical therapy for mobility, gait and safety. Continue by mouth pain medication as needed.. Continue his Xarelto 10 mg daily 35 days postop for DVT prophylaxis. Postoperative dressing is clean dry and intact Bilateral SCDs are in place. Bilateral SHARITA hose are in place. Follow-up in 2 weeks that [facility] orthopedic clinic with Dr. David galicia with staple removal and application of Steri-Strips and 2 view left femur x -rays on arrival. Patient will be cleared showering and getting wound wet at that time. Follow up in 6 weeks at [facility] orthopedic clinic with Dr. David galicia with left two-view femur x-rays on arrival. Orthopedics thanks hospitalist service for their help in the medical management of this patient. Orthopedics has cleared this patient for discharge regarding his orthopedic issues. Anticipate discharge to [facility] facility by hospitalist service when patient is determined to be medically stable for discharge. VTE Prophylaxis: SCDs (bilateral SCDs), SHARITA Hose (bilateral SHARITA hose thigh- high ordered today), Other (Xarelto 10 mg 35 days postop for DVT prophylaxis) Mich Hernandez PA-C February 11, 2017 07:27
[2017-02-11 08:00] VITALS: PULSE 80; O2SAT 94
[2017-02-11] MEDS: Calcium Carbonate (Oyster Shell) 500 mg Tablet PO SCH (08:00)
[2017-02-11] MEDS: Senna-Docusate 8.6-50 mg Tablet PO SCH (08:30)
[2017-02-11] MEDS: Vitamins C,E, Omega-3, Mineral Tablet PO SCH (09:28)
[2017-02-11] MEDS: Fluticasone-Salmererol 250-50 Inhaler INHALATION SCH (09:29)
--- NOTE | 2017-02-11 13:43 | PCM.DC.MED ---
Discharge Summary Date of Service February 11, 2017 Dates of Hospitalization Date of Hospital Admission February 05, 2017 at 13:11 Date of Discharge: February 11, 2017 Providers: Admitting Physician: Fredis Muir MD Primary Care Physician: Adrien Dowd DO Attending Physician: Fredis Muir MD Diagnosis at Time of Discharge Diagnosis at Time of Discharge Left hip fracture, COPD exacerbation, encephalopathy, anemia Consultations Ortho, Sheu Procedures XRay, CTs & MRIs X-RAY CHEST ONE VIEW, PORTABLE ([id number]) 02/05 Surgical changes and devices: Thoracic vertebral/kyphoplasty changes are present. Lungs and pleura: Chronic interstitial changes most prominent in the apices are unchanged. Mediastinum: Mediastinal contours appear normal. Heart size is normal. Bones and chest wall: No suspicious bony lesions. Overlying soft tissues appear unremarkable. IMPRESSION: Unchanged chronic interstitial changes. Dictated by: Calli Oconnor M.D. on 02/05/2017 at 12:51 X-RAY LEFT FEMUR, TWO VIEWS 02/05 IMPRESSION: Nondisplaced proximal femoral shaft fracture as above. Approved by: Calli Oconnor M.D. on 02/05/2017 at 12:53 ECG 12 Lead sinus tach 106 Brief History 86 year old male with remote history NV, fomer smoker, COPD, HLD, severe back osteoarthritis a/p multiple kyphoplasty presented with mechanical fall this morning. Patient and dated that, there were outside of the house, patient tripped over extension cord, landed on the ground on the left side on the wooden deck, hurt his lt hip, lt elbow and mildly hit head. Patient denied chest pain, difficulty breathing, palpitation, blurry vision, nausea prior to fall. Patient did lose consciousness as per , not confused. called her son to bring to hospital. Of note, pt usually ambulates without any assistance at home and outside. can walk many blocks without chest pain,SOB. Patient denied any fever, chills, recent sickness, nausea, vomiting, diarrhea, urinary complaints. recent travel. pt used to use home oxygen until 2yrs ago before he moved to [place], for past 2yrs, Spo2 remained 90-95% on RA, didn't require O2, denied hospitalization with COPD. ED VS [id number], 68, 18, 93% on RA, afebrile. femur/knee/hip xray showed Nondisplaced proximal femoral shaft fracture. CXR/labs unremarkable. EKG-sinus [id number] Hospital Course 86 year old male admitted through the emergency room with broken hip 02/05. Hx severe back osteoarthritis a/p multiple kyphoplasty presented with mechanical fall this morning, found to have 02/07 patient is apparently confused I am not sure how far this is from baseline. He is happily easily redirectable and has not been a problem yet. I will get a CXR to evaluate his COPD that has not been done during this admission. Repeat labs in the a.m. It is not clear to me whether this patient is on chronic O2 or if this is new. I am adding aggressive pulmonary toilet with incentive spirometry in addition to the nebulizer she is getting. 02/08 H/H is stable, white cell count is still slightly elevated. Having difficulty weaning patient off of oxygen and he is extremely confused. Patient continues to need more care than the think his can provide for him however given his anxiety/confusion the optimal plan would be to send him home if at all possible. 02/09 patient required restraints but settled down last night. Removing telemetry, Abreu, IVF so he is less agitated and is less to pull at. Starting generous bedtime dosing diazepam/Seroquel in the hope that he sleeps through the night and does not require restraints or a sitter so he may be discharged to SNF 02/10. 02/10 with medication adjustments patient had a calm night and is for discharge today. 02/11 another call 9 patient's being discharged This patient has done remarkably well postoperatively. Her issue is that he likes to walk and needed regular reminders not to be trying to get up so he was a fall risk. He has dementia and becomes anxious. He is benzodiazepine dependent and also very dependent on his . She needed some respite care. That is why we started the Seroquel hopefully if she is around more he will need the Seroquel less. I recommend that you might discontinue the daytime doses when the patient can be watched, but I would recommend dosing generously early in the evening before patient starts to significantly. As he is able to move around more I think his agitation will subside as he becomes agitated when he wants to get up and does not understand why he is not being allowed to. COPD is significant he has been oxygen dependent in the past but I am hopeful he will be able to wean down to no oxygen. HTN/CAD while the patient is on Xarelto I have stopped his aspirin but when he that is discontinued I would resume aspirin for secondary prevention and CAD. #Anemia-not unexpected after long bone fracture, dilutional got 2 L since yesterday. #Metabolic encephalopathy/dementia-patient was started back on diazepam 02/07, -Changing patient to tramadol/ po oxycodone/Tylenol discontinuing Dilaudid continuing Celebrex 200 mg daily down from twice a day 02/08 -Discontinue Zyprexa 2.5 mg twice a day 02/08-02/09, trial Seroquel with generous doses 25 mg and 5 mg diazepam at bedtime #YANELI-IV NS 2L, f BUN/CR improved 02/09, #Acute respiratory failure/COPD exacerbation, continue qvar bid, albuterol prn, will target [id number]%, o2 supplement as needed -CXR 02/07 no acute process -Doxycycline 100 mg twice a day added 02/08, sent for another 7 days after discharge. I would have put him on steroids except for the healing bone. #s/p ground level mechanical fall, resultant left proximal femur shaft fx. no s/ s of prodrome prior to fall. -appreciate , pORIF 02/06 -control pain with morphine or oxycodone, will try fentanyl prn -post op dvt ppx, pain management per orthopedic service Follow-up in 2 weeks that [facility] orthopedic clinic with Dr. David galicia with staple removal and application of Steri-Strips and 2 view left femur x -rays on arrival. Patient will be cleared showering and getting wound wet at that time. Follow up in 6 weeks at [facility] orthopedic clinic with Dr. David galicia with left two-view femur x-rays on arrival. SCDs (bilateral SCDs), SHARITA Hose (bilateral SHARITA hose thigh-high ordered today), Other (Xarelto 10 mg 35 days postop for DVT prophylaxis) #mild tachycardia, hypertension, POA, likely due to stress response, resolved -Vitals 140/701- 153/85 Pulse 79-92 over the last 24 hours. #Hx CAD s/p NV 1997ishstable, monitor for now- resume aspirin when he is off of Xarelto, #Lipids- adr statins, continue Zetia after surgery #severe back osteoarthritis, fracture a/p multiple kyphoplasty, stable, #anxiety d/o, patient is benzodiazepine dependent. We have returned that and added Seroquel. This can be weaned as patient's situation stabilizes. Full code Exam Vital Signs (Last) Date Time Temp Pulse Resp B/P Pulse Ox O2 Delivery O2 Flow Rate FiO2 02/11/17 09:49 Supplement Oxygen 02/11/17 08:00 80 94 1.00 02/11/17 05:00 36.7 21 153/85 Test 02/05/17 11:00 02/05/17 17:33 02/08/17 05:20 02/10/17 05:00 Total Bilirubin 0.8mg/dL (0.0-1.2) Aspartate Amino Transf (AST/SGOT) 25U/L (0-50) Alanine Aminotransferase (ALT/SGPT) 18U/L (0-44) Alkaline Phosphatase 94U/L (25-160) Total Protein 7.1g/dL (6.4-8.4) Albumin 3.9g/dL (3.4-5.0) Urine Color Dark yellow (YELLOW) Urine Appearance Clear (CLEAR,HAZY) Urine pH 6.0 (5.0-8.0) Urine Specific [place]app[place] 1.025 (1.003-1.035) Urine Protein 30mg/dL (NEG,TRACE) Urine Glucose (UA) Negativemg/dL (NEGATIVE) Urine Ketones 15mg/dL (NEGATIVE) Urine Occult Blood Negative (NEGATIVE) Urine Nitrite Negative (NEGATIVE) Urine Bilirubin Negative (NEGATIVE) Urine Urobilinogen Normalmg/dL (NORMAL) Urine Leukocyte Esterase Negative (NEGATIVE) Urine RBC 0-2/hpf (0-2) Urine WBC 0-5/hpf (0-5) Urine Epithelial Cells Occasional/hpf (NONE-MOD) Urine Crystals None seen (NONE SEEN) Urine Bacteria None/hpf (NONE-FEW) Urine Hyaline Casts None/lpf (NONE) Urine Granular Casts None seen (NONE SEEN) Urine Waxy Casts None seen (NONE SEEN) Urine Red Blood Cell Casts None seen (NONE SEEN) Urine White Blood Cell Casts None seen (NONE SEEN) Urine Mucus None seen (None Seen) Urine Trichomonas None seen (NONE SEEN) Urine Yeast None (NONE SEEN) Urinalysis Comment None Urine Culture Reflexed Not indicated Magnesium Level 2.3mg/dL (1.6-2.6) White Blood Count 8.8th/mm3 (3.8-10.1) Red Blood Count 3.35mil/mm3 (4.40-5.80) Hemoglobin 10.6g/dL (13.8-17.2) Hematocrit 31.2% (41.0-50.0) Mean Corpuscular Volume 93.1fL (81-100) Mean Corpuscular Hemoglobin 31.6pg (27.0-35.0) Mean Corpuscular Hemoglobin Concent 34.0% (32.0-37.0) Red Cell Distribution Width 15.2% (12.3-15.4) Platelet Count 153bil/L (150-400) Neutrophils (%) (Auto) 61.9% (40-74) Lymphocytes (%) (Auto) 15.5% (14-46) Monocytes (%) (Auto) 14.4% (4-12) Eosinophils (%) (Auto) 7.3% (0-5) Basophils (%) (Auto) 0.7% (0-3) Sodium Level 141mEq/L (134-144) Potassium Level 4.8mEq/L (3.5-5.2) Chloride Level 106mEq/L (97-108) Carbon Dioxide Level 25mmol/L (18-29) Blood Urea Nitrogen 32mg/dL (8-27) Creatinine 0.97mg/dL (0.76-1.27) Estimat Glomerular Filtration Rate 78mL/min (>59) Glucose Level 95mg/dL (60-99) Calcium Level 8.6mg/dL (8.5-10.1) Discharge Medications Discharge Medications ([Calcium Carbonate]) 500 MG TABLET 500 MG PO BIDWM Prescribed by: DAGOBERTO CARMONA MD ([Senna/Docusate Sodium]) 1 TABLET TABLET 1 TABLET PO BID Prescribed by: DAGOBERTO CARMONA MD ([Therapeutic Multivit/Minerals]) 1 TABLET TABLET 1 TABLET PO DAILY Prescribed by: DAGOBERTO CARMONA MD Cholecalciferol (Vitamin D3) (Vitamin D3) 400 Unit Tablet 2,000 UNIT PO BIDWM Prescribed by: DAGOBERTO CARMONA MD Docusate Sodium (Colace) 100 Mg Capsule 100 MG PO BID Prescribed by: DAGOBERTO CARMONA MD Doxycycline Hyclate (Doxycycline Hyclate) 100 Mg Tablet 100 MG PO BID Prescribed by: DAGOBERTO CARMONA MD Ezetimibe (Zetia) 10 Mg Tablet 10 MG PO Every other day (Reported) Fluticasone/Salmeterol (Advair 250-50 Diskus) 60 Puff/Inh Disk 1 PUFF IH BID ( Reported) Mirtazapine (Mirtazapine) 15 Mg Tablet 15 MG PO BID Prescribed by: DAGOBERTO CARMONA MD Quetiapine Fumarate (Quetiapine Fumarate) 25 Mg Tablet 25 MG PO HS Prescribed by: DAGOBERTO CARMONA MD Quetiapine Fumarate (Quetiapine Fumarate) 25 Mg Tablet 25 MG PO BID Prescribed by: DAGOBERTO CARMONA MD Rivaroxaban (Xarelto) 10 Mg Tablet 10 MG PO DAILY Prescribed by: DAGOBERTO CARMONA MD Vit A,C & E/Lutein/Minerals (Ocuvite with Lutein Tablet) 1 Each Tablet 1 TABLET PO DAILY Prescribed by: DAGOBERTO CARMONA MD As needed ([Bisacodyl]) 10 MG SUPP 10 MG RECTAL DAILY PRN PRN For Constipation Prescribed by: DAGOBERTO CARMONA MD Albuterol HFA (Proair HFA) 8.5 Gm Hfa.aer.ad 2 PUFFS INHALATION Q4H PRN PRN For Shortness of Breath (Reported) Albuterol Neb Soln (Albuterol Neb Soln) 2.5 Mg/3 Ml Vial.neb 2.5 MG NEB Q2H PRN PRN For Shortness of Breath Prescribed by: DAGOBERTO CARMONA MD Diazepam (Valium) 5 Mg Tablet 2.5 MG PO TID PRN PRN For Anxiety Prescribed by: DAGOBERTO CARMONA MD Magnesium Hydroxide (Milk of Magnesia) 2,400 Mg/10 Ml Oral.susp 30 ML PO HS PRN PRN For Constipation Prescribed by: DAGOBERTO CARMONA MD Polyethylene Glycol 3350 (Miralax) 17 Gm Powd.pack 17 GM PO DAILY PRN PRN For Constipation Prescribed by: DAGOBERTO CARMONA MD Quetiapine Fumarate (Quetiapine Fumarate) 25 Mg Tablet 25 MG PO DAILY@00,22,23 PRN PRN For Agitation Prescribed by: DAGOBERTO CARMONA MD oxyCODONE (oxyCODONE) 5 Mg Tablet 5-10 MG PO Q4H PRN PRN For Severe Pain Prescribed by: DAGOBERTO CARMONA MD Miscellaneous Medications Folic Acid (Folic Acid) 0.4 Mg Tablet 0.4 MG PO (Reported) Followup Plan Follow-up plan Patient going to SNF for a bit. Needs follow-up with orthopedics and primary care provider. Discharge Diet: No restrictions Discharge Activity: No restrictions Patient Instructions Patient going to SNF hopefully we can wean him off oxygen he is normally not on it but had been on it previously. He is very anxious and has a tendency to mobilize and is extremely sensitive to narcotic medications. He is also benzodiazepine dependent. Follow-up Provider: Marcelo Beckwith DO Follow-up with PCP in: Other (around February 18 for hip follow-up orthopedics. Call.) Provider: Adrien Dowd DO Follow-up in: Other (pollen sniffer at least on discharge.) Time spent Greater than 30 minutes Dagoberto Carmona MD February 11, 2017 13:43
== END 2017-02-11 10:08 | DRG 480 ==
LOC: EDBD 09:50 → SED 09:50 → OSC 13:11
PROVIDERS: ADMIT Internal Medicine; ATTEND Internal Medicine
PROC: 0QS736Z Reposition Left Upper Femur with Intramedullary Internal Fixation Device, Percutaneous Approach (ICD-10-PCS; principal; 2017-02-06 13:15)
DX: S72.122A Displaced fracture of lesser trochanter of left femur, initial encounter for closed fracture (principal); J96.00 Acute respiratory failure, unspecified whether with hypoxia or hypercapnia; G93.41 Metabolic encephalopathy; N17.9 Acute kidney failure, unspecified; J44.1 Chronic obstructive pulmonary disease with (acute) exacerbation; Z87.891 Personal history of nicotine dependence; W01.0XXA Fall on same level from slipping, tripping and stumbling without subsequent striking against object, initial encounter; Y92.018 Other place in single-family (private) house as the place of occurrence of the external cause; D64.9 Anemia, unspecified; F41.9 Anxiety disorder, unspecified; I25.10 Atherosclerotic heart disease of native coronary artery without angina pectoris; E78.5 Hyperlipidemia, unspecified